=== PATIENT | male | born 1960 | race Two or more races ===

== ENCOUNTER 2017-02-21 13:37 | Inpatient (IN) | payer MEDICAID ==
[~2017-02-21] VITALS: Ht 167.6 cm; Wt 54.4 kg
[2017-02-21] VITALS (14 sets, daily range): BP systolic 86–124; BP diastolic 49–82
[2017-02-21] MEDS ORDERED: Trihexyphenidyl 2mg tab ORAL ONE (14:00)
[2017-02-21 14:55] LABS: BASOPHILS % (AUTO) 1.6 % (0.0-2.0); EOSINOPHILS % (AUTO) 2.5 % (0.0-3.0); LYMPHOCYTES % (AUTO) 20.9 % (20.0-45.0); MEAN CORPUSCULAR HEMOGLOBIN 33.3 PG (27.0-31.0); MEAN CORPUSCULAR HGB CONC 34.4 G/DL (32.0-36.0); MEAN CORPUSCULAR VOLUME 97 FL (80-99); MEAN PLATELET VOLUME 6.1 FL (6.5-10.1); PLATELET COUNT 242 K/UL (150-450); RED BLOOD COUNT 4.93 M/UL (4.70-6.10); RED CELL DISTRIBUTION WIDTH 11.7 % (11.6-14.8)
[2017-02-21 15:13] LABS: ANION GAP 7 mmol/L (5-15); CALCIUM 8.6 MG/DL (8.5-10.1); CARBON DIOXIDE 27 MMOL/L (21-32); CHLORIDE 103 MMOL/L (98-107); CREATININE 0.5 MG/DL (0.55-1.30); GLOMERULAR FILTRATION RATE > 60 mL/min (>60); POTASSIUM 3.9 MMOL/L (3.5-5.1); SODIUM 137 MMOL/L (136-145)
[2017-02-21 15:18] LABS: ALANINE AMINOTRANSFERASE 93 U/L (12-78); ALBUMIN/GLOBULIN RATIO 1.1 (1.0-2.7); ASPARTATE AMINO TRANSFERASE 43 U/L (15-37); TOTAL PROTEIN 7.2 G/DL (6.4-8.2)
--- NOTE | 2017-02-21 15:25 | Emergency Room Report ---
History of Present Illness General Chief Complaint: Seizure Source: Patient Present Illness HPI Patient is a 56-year-old male presented after syncopal episode. The patient reports having prior history of seizure disorder. Patient states he lost consciousness. This was unwitnessed. Patient is brought in by EMS. Patient reportedly takes Dilantin. Patient complained of right upper extremity shaking. He states he usually takes Artane for this. He denies any fever Allergies: Coded Allergies: No Known Allergies (Unverified , 02/21/17) Patient History Past Medical History: see triage record, psych hx Reviewed Nursing Documentation: PMH: Agreed, PSxH: Agreed Nursing Documentation-PMH Hx Seizures: Yes Review of Systems All Other Systems: limited - by mental status Physical Exam Vital Signs Date Time Temp Pulse Resp B/P (MAP) Pulse Ox O2 Delivery O2 Flow Rate FiO2 02/21/17 13:34 98.1 120 18 130/80 98 Room Air Sp02 EP Interpretation: reviewed, normal General Appearance: normal inspection, well appearing, no apparent distress, alert, GCS 15 Head: atraumatic ENT: normal ENT inspection, hearing grossly normal, normal voice Neck: normal inspection, full range of motion, supple, no bony tend Respiratory: normal inspection, lungs clear, normal breath sounds, no respiratory distress, no retraction, no wheezing Cardiovascular #1: regular rate, rhythm, no edema Gastrointestinal: normal inspection, normal bowel sounds, non tender, soft, no guarding, no hernia Genitourinary: no CVA tenderness Musculoskeletal: normal inspection, back normal, normal range of motion Neurologic: normal inspection, alert, oriented x3, responsive, rural sociologist III-XII nml as tested, speech normal, other - upper extremity tremor Psychiatric: normal inspection, judgement/insight normal, other - flat affect Skin: normal inspection, normal color, no rash Medical Decision Making Diagnostic Impression: Primary Impression: Epileptic seizure, generalized Additional Impression: Bradycardia ER Course Patient presented for syncope . Differential diagnosis included but not limited to syncope versus seizure. Potential causes for syncope included arrhythmia, dehydration, acute coronary syndrome, severe anemia, pulmonary embolus.Because of complexity of patient's case laboratory testing and imaging studies were ordered. Laboratory testing was notable for subtherapeutic dilantin level. Patient was loaded on Dilantin. He was noted to have bradycardia episodes. Patient was discussed with Dr. Stewart for inpatient management due to panel physician. Labs Test 02/21/17 14:35 02/22/17 06:40 Troponin I 0.000 ng/mL (0.000-0.056) Phenytoin (Dilantin) Level < 0.4 ug/mL (10-20) White Blood Count 6.0 K/UL (4.8-10.8) Red Blood Count 4.84 M/UL (4.70-6.10) Hemoglobin 17.2 G/DL (14.2-18.0) Hematocrit 45.9 % (42.0-52.0) Mean Corpuscular Volume 95 FL (80-99) Mean Corpuscular Hemoglobin 35.6 PG (27.0-31.0) Mean Corpuscular Hemoglobin Concent 37.6 G/DL (32.0-36.0) Red Cell Distribution Width 11.2 % (11.6-14.8) Platelet Count 221 K/UL (150-450) Mean Platelet Volume 6.0 FL (6.5-10.1) Neutrophils (%) (Auto) 53.3 % (45.0-75.0) Lymphocytes (%) (Auto) 30.7 % (20.0-45.0) Monocytes (%) (Auto) 10.0 % (1.0-10.0) Eosinophils (%) (Auto) 4.8 % (0.0-3.0) Basophils (%) (Auto) 1.3 % (0.0-2.0) Prothrombin Time 11.7 SEC (9.30-11.50) Prothromb Time International Ratio 1.1 (0.9-1.1) Activated Partial Thromboplast Time 27 SEC (23-33) Sodium Level 139 MMOL/L (136-145) Potassium Level 4.2 MMOL/L (3.5-5.1) Chloride Level 105 MMOL/L (98-107) Carbon Dioxide Level 26 MMOL/L (21-32) Anion Gap 8 mmol/L (5-15) Blood Urea Nitrogen 9 mg/dL (7-18) Creatinine 0.6 MG/DL (0.55-1.30) Estimat Glomerular Filtration Rate > 60 mL/min (>60) Glucose Level 95 MG/DL (74-106) Calcium Level 8.9 MG/DL (8.5-10.1) Total Bilirubin 0.8 MG/DL (0.2-1.0) Aspartate Amino Transf (AST/SGOT) 51 U/L (15-37) Alanine Aminotransferase (ALT/SGPT) 102 U/L (12-78) Alkaline Phosphatase 76 U/L (46-116) Total Protein 7.3 G/DL (6.4-8.2) Albumin 3.9 G/DL (3.4-5.0) Globulin 3.4 g/dL Albumin/Globulin Ratio 1.1 (1.0-2.7) Triglycerides Level 50 MG/DL (30-150) Cholesterol Level 162 MG/DL (< 200) LDL Cholesterol 111 mg/dL (<100) HDL Cholesterol 47 MG/DL (40-60) Cholesterol/HDL Ratio 3.4 (3.3-4.4) Thyroid Stimulating Hormone (TSH) 0.652 uiU/mL (0.358-3.740) EKG Diagnostic Results Rate: bradycardiac ST Segments: no acute changes Rhythm Strip Diag. Results EP Interpretation: yes Rhythm: no PVC's, no ectopy, other - sinus bradycardia Last Vital Signs Date Time Temp Pulse Resp B/P (MAP) Pulse Ox O2 Delivery O2 Flow Rate FiO2 02/21/17 15:09 98.1 40 16 113/70 100 Room Air Status: unchanged Disposition: ADMITTED INPATIENT Condition: Serious Scripts Unable to Obtain Active Prescriptions or Reported Meds Referrals: NOT CHOSEN IPA/,REFERRING (PCP) [place] Feb 21, 2017 15:25
[2017-02-21] MEDS ORDERED: Phenytoin 250mg/5ml vial ONE (15:28)
[2017-02-21] MEDS ORDERED: Phenytoin 1,000 MG in NS 275 ML IVPB ONE (15:30)
[2017-02-21] MEDS ORDERED: Mylanta II UD 30ml ORAL PRN (16:00)
[2017-02-21] MEDS ORDERED: Nitroglycerin Subl 0.4mg tab SL PRN (16:00)
[2017-02-21] MEDS ORDERED: Morphine Sulfate 2mg/ml Inj IVP PRN (16:00)
[2017-02-21] MEDS ORDERED: Miralax 17gm pkt ORAL PRN (16:00)
[2017-02-21] MEDS ORDERED: LORazepam Inj 2mg/ml 1ml IV PRN (16:00)
[2017-02-21] MEDS ORDERED: Albuterol/Ipratropium 3ml neb HHN PRN (16:00)
--- NOTE | 2017-02-21 16:00 | Diagnostic Imaging Report ---
Indications: Head trauma, status post fall Technique: Spiral acquisitions obtained through the brain. Angled axial and coronal 5 x 5 mm slices were reconstructed. Total dose length product 1404 mGycm. CTDI vol(s) 70 mGy. Dose reduction achieved using automated exposure control Comparison: None Findings: There is an area of encephalomalacia in the inferolateral right temporal lobe anteriorly. No acute intracranial hemorrhage or edema. No mass effect or midline shift. Normal size ventricles and extra axial CSF spaces. Normal garcia-white differentiation otherwise. Intact calvarium. Visualized orbits and sinuses are unremarkable. Old healed fracture deformity of the right zygomatic arch incidentally noted. 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
[2017-02-21] MEDS ORDERED: DiphenhydrAMINE 50mg/ml Inj IVP ONE (18:45)
[2017-02-21] MEDS: Heparin 5000 units/ml inj SUBQ SCH (21:00)
--- NOTE | 2017-02-21 21:35 | History and Physical ---
History of Present Illness General Date patient seen: Feb 21, 2017 Reason for Hospitalization: Seizure Present Illness HPI 56-year-old male with hx of seizures presented after syncopal episode. Patient states he lost consciousness. This was unwitnessed. Patient is brought in by EMS. Patient complained of right upper extremity shaking. He states he usually takes Artane for this. He is admitted for an syncopal episode or uncontrolled seizures. He was also noticed to be bradycardic. Allergies: Coded Allergies: No Known Allergies (Unverified , 02/21/17) Medication History Unable to Obtain Active Prescriptions or Reported Meds Patient History Healthcare decision maker Resuscitation status Advanced Directive on File Past Medical/Surgical History Past Medical/Surgical History: (1) Seizure disorder Review of Systems All Other Systems: negative except mentioned in HPI Physical Exam General Appearance: WD/WN Lines, tubes and drains: central line HEENT: normocephalic Neck: non-tender, normal alignment Respiratory/Chest: chest wall non-tender, lungs clear Breasts: no masses Cardiovascular/Chest: normal peripheral pulses, normal rate, regular rhythm Abdomen: normal bowel sounds Genitourinary/Rectal: normal genital exam Extremities: normal range of motion Last 24 Hour Vital Signs Date Time Temp Pulse Resp B/P (MAP) Pulse Ox O2 Delivery O2 Flow Rate FiO2 02/21/17 19:44 97.5 56 18 99/52 99 Room Air 02/21/17 19:07 97.5 72 18 108/69 99 Room Air 02/21/17 18:09 97.5 63 22 104/68 98 Room Air 02/21/17 17:23 98.1 59 15 108/65 99 Room Air 02/21/17 16:53 98.1 43 20 94/52 99 Room Air 02/21/17 16:08 98.0 47 16 115/62 100 Room Air 02/21/17 15:30 97.8 42 14 99/56 98 Room Air 02/21/17 15:09 98.1 40 16 113/70 100 Room Air 02/21/17 14:46 98.1 49 16 113/70 98 Room Air 124/82 02/21/17 14:30 98.0 47 16 111/74 100 Room Air 02/21/17 13:48 63 16 Room Air 02/21/17 13:48 98.1 63 16 123/81 98 Room Air 02/21/17 13:34 98.1 120 18 130/80 98 Room Air Intake and Output 02/21/17 02/22/17 19:00 07:00 Intake Total 250 ml Balance 250 ml Intake Oral 0 ml IV Total 250 ml Laboratory Tests Test 02/21/17 14:35 White Blood Count 6.0 K/UL (4.8-10.8) Red Blood Count 4.93 M/UL (4.70-6.10) Hemoglobin 16.4 G/DL (14.2-18.0) Hematocrit 47.8 % (42.0-52.0) Mean Corpuscular Volume 97 FL (80-99) Mean Corpuscular Hemoglobin 33.3 PG (27.0-31.0) H Mean Corpuscular Hemoglobin Concent 34.4 G/DL (32.0-36.0) Red Cell Distribution Width 11.7 % (11.6-14.8) Platelet Count 242 K/UL (150-450) Mean Platelet Volume 6.1 FL (6.5-10.1) L Neutrophils (%) (Auto) 65.0 % (45.0-75.0) Lymphocytes (%) (Auto) 20.9 % (20.0-45.0) Monocytes (%) (Auto) 10.0 % (1.0-10.0) Eosinophils (%) (Auto) 2.5 % (0.0-3.0) Basophils (%) (Auto) 1.6 % (0.0-2.0) Sodium Level 137 MMOL/L (136-145) Potassium Level 3.9 MMOL/L (3.5-5.1) Chloride Level 103 MMOL/L (98-107) Carbon Dioxide Level 27 MMOL/L (21-32) Anion Gap 7 mmol/L (5-15) Blood Urea Nitrogen 12 mg/dL (7-18) Creatinine 0.5 MG/DL (0.55-1.30) L Estimat Glomerular Filtration Rate > 60 mL/min (>60) Glucose Level 83 MG/DL (74-106) Calcium Level 8.6 MG/DL (8.5-10.1) Total Bilirubin 0.7 MG/DL (0.2-1.0) Aspartate Amino Transf (AST/SGOT) 43 U/L (15-37) H Alanine Aminotransferase (ALT/SGPT) 93 U/L (12-78) H Alkaline Phosphatase 78 U/L (46-116) Troponin I 0.000 ng/mL (0.000-0.056) Total Protein 7.2 G/DL (6.4-8.2) Albumin 3.8 G/DL (3.4-5.0) Globulin 3.4 g/dL Albumin/Globulin Ratio 1.1 (1.0-2.7) Phenytoin (Dilantin) Level < 0.4 ug/mL (10-20) L Height (Feet): 5 Height (Inches): 6.00 Weight (Pounds): 120 Medications Current Medications Medications (Trade) Dose Ordered Sig/Lucas Route PRN Reason Start Time Stop Time Status Last Admin Dose Admin Acetaminophen (Tylenol) 650 mg Q4H PRN ORAL fever 02/21/17 16:00 03/23/17 15:59 Al Hydroxide/Mg Hydroxide (Mylanta II) 30 ml Q6H PRN ORAL dyspepsia 02/21/17 16:00 03/23/17 15:59 Albuterol/ Ipratropium (Albuterol/ Ipratropium) 3 ml Q4H PRN HHN Shortness of Breath 02/21/17 16:00 02/26/17 15:59 Clonidine HCl (Catapres) 0.1 mg Q4H PRN ORAL SBP > 160 02/21/17 16:00 03/23/17 15:59 Dextrose (Dextrose 50%) STAT PRN IV Hypoglycemia 02/21/17 16:00 03/23/17 15:59 Heparin Sodium (Porcine) (Heparin 5000 units/ml) 5,000 units EVERY 12 HOURS SUBQ 02/21/17 21:00 03/23/17 20:59 Lorazepam (Ativan 2mg/ml 1ml) 0.5 mg Q4H PRN IV For Anxiety 02/21/17 16:00 02/28/17 15:59 Morphine Sulfate (Morphine Sulfate) 1 mg Q4H PRN IVP For Pain 7-10 02/21/17 16:00 02/28/17 15:59 Nitroglycerin (Ntg) 0.4 mg Q5M X 3 DOSES PRN SL Prn Chest Pain 02/21/17 16:00 03/23/17 15:59 Ondansetron HCl (Zofran) 4 mg Q6H PRN IVP Nausea & Vomiting 02/21/17 16:00 03/23/17 15:59 Polyethylene Glycol (Miralax) 17 gm HSPRN PRN ORAL Constipation 02/21/17 16:00 03/23/17 15:59 Temazepam (Restoril) 15 mg HSPRN PRN ORAL Insomnia 02/21/17 16:00 02/28/17 15:59 Assessment/Plan Problem List: (1) Acute encephalopathy ICD Codes: G93.40 - Encephalopathy, unspecified SNOMED: 5113261 (2) Epileptic seizure, generalized ICD Codes: G40.309 - Generalized idiopathic epilepsy and epileptic syndromes, not intractable, without status epilepticus SNOMED: 70381189 (3) Seizure disorder ICD Codes: G40.909 - Epilepsy, unspecified, not intractable, without status epilepticus SNOMED: 840146218 (4) Bradycardia ICD Codes: R00.1 - Bradycardia, unspecified SNOMED: 57694645 Assessment/Plan telemetry monitoring cardiology and neuro evaluation dvt prophylaxis. SERGEY DESHPANDE Feb 21, 2017 21:35
[2017-02-22 04:00] VITALS: BP 96/61
[2017-02-22 07:47] LABS: BASOPHILS % (AUTO) 1.3 % (0.0-2.0); EOSINOPHILS % (AUTO) 4.8 % (0.0-3.0); LYMPHOCYTES % (AUTO) 30.7 % (20.0-45.0); MEAN CORPUSCULAR HEMOGLOBIN 35.6 PG (27.0-31.0); MEAN CORPUSCULAR HGB CONC 37.6 G/DL (32.0-36.0); MEAN CORPUSCULAR VOLUME 95 FL (80-99); NEUTROPHILS % (AUTO) 53.3 % (45.0-75.0); PLATELET COUNT 221 K/UL (150-450); RED BLOOD COUNT 4.84 M/UL (4.70-6.10); RED CELL DISTRIBUTION WIDTH 11.2 % (11.6-14.8)
[2017-02-22 08:00] VITALS: BP 101/64
[2017-02-22 08:10] LABS: INR 1.1 (0.9-1.1); PROTHROMBIN TIME 11.7 SEC (9.30-11.50)
[2017-02-22 08:11] LABS: ALANINE AMINOTRANSFERASE 102 U/L (12-78); ALBUMIN/GLOBULIN RATIO 1.1 (1.0-2.7); ANION GAP 8 mmol/L (5-15); ASPARTATE AMINO TRANSFERASE 51 U/L (15-37); CALCIUM 8.9 MG/DL (8.5-10.1); CARBON DIOXIDE 26 MMOL/L (21-32); CHLORIDE 105 MMOL/L (98-107); CHOLESTEROL 162 MG/DL (< 200); CHOLESTEROL/HDL RATIO 3.4 (3.3-4.4); CREATININE 0.6 MG/DL (0.55-1.30); GLOMERULAR FILTRATION RATE > 60 mL/min (>60); POTASSIUM 4.2 MMOL/L (3.5-5.1); SODIUM 139 MMOL/L (136-145); THYROID STIMULATING HORMONE 0.652 uiU/mL (0.358-3.740); TOTAL PROTEIN 7.3 G/DL (6.4-8.2)
[2017-02-22] MEDS: Heparin 5000 units/ml inj SUBQ SCH ×2 (09:44→20:17)
[2017-02-22] MEDS ORDERED: Trihexyphenidyl 2mg tab ORAL ONE (10:00)
[2017-02-22 12:00] VITALS: BP 107/67
--- NOTE | 2017-02-22 13:39 | Pulmonology Progress Note ---
Assessment/Plan Problems: (1) Acute encephalopathy (2) Epileptic seizure, generalized (3) Seizure disorder (4) Bradycardia Assessment/Plan no new complains awaiting cardio and neuro evaluation symptomatic treatment Subjective ROS Limited/Unobtainable: No Interval Events: no new complains Constitutional: Reports: no symptoms HEENT: Repors: no symptoms Allergies: Coded Allergies: No Known Allergies (Unverified , 02/21/17) Objective Last 24 Hour Vital Signs Date Time Temp Pulse Resp B/P (MAP) Pulse Ox O2 Delivery O2 Flow Rate FiO2 02/22/17 08:00 48 02/22/17 04:00 46 02/22/17 04:00 96.4 46 20 96/61 95 Room Air 02/22/17 00:00 45 02/21/17 23:40 98.4 44 18 112/67 97 Room Air 02/21/17 23:26 97.5 49 18 92/59 99 Room Air 46 02/21/17 23:21 97.5 46 18 92/59 99 Room Air 02/21/17 21:35 97.5 49 18 86/49 99 Room Air 02/21/17 19:44 97.5 56 18 99/52 99 Room Air 02/21/17 19:07 97.5 72 18 108/69 99 Room Air 02/21/17 18:09 97.5 63 22 104/68 98 Room Air 02/21/17 17:23 98.1 59 15 108/65 99 Room Air 02/21/17 16:53 98.1 43 20 94/52 99 Room Air 02/21/17 16:08 98.0 47 16 115/62 100 Room Air 02/21/17 15:30 97.8 42 14 99/56 98 Room Air 02/21/17 15:09 98.1 40 16 113/70 100 Room Air 02/21/17 14:46 98.1 49 16 113/70 98 Room Air 124/82 02/21/17 14:30 98.0 47 16 111/74 100 Room Air 02/21/17 13:48 63 16 Room Air 02/21/17 13:48 98.1 63 16 123/81 98 Room Air General Appearance: WD/WN HEENT: atraumatic Respiratory/Chest: chest wall non-tender, lungs clear Cardiovascular: normal peripheral pulses, normal rate Abdomen: normal bowel sounds, soft, non tender Extremities: no clubbing Skin: no lesions Laboratory Tests 02/21/17 14:35: White Blood Count 6.0, Red Blood Count 4.93, Hemoglobin 16.4, Hematocrit 47.8, Mean Corpuscular Volume 97, Mean Corpuscular Hemoglobin 33.3H, Mean Corpuscular Hemoglobin Concent 34.4, Red Cell Distribution Width 11.7, Platelet Count 242, Mean Platelet Volume 6.1L, Neutrophils (%) (Auto) 65.0, Lymphocytes (%) (Auto) 20.9, Monocytes (%) (Auto) 10.0, Eosinophils (%) (Auto) 2.5, Basophils (%) (Auto ) 1.6, Sodium Level 137, Potassium Level 3.9, Chloride Level 103, Carbon Dioxide Level 27, Anion Gap 7, Blood Urea Nitrogen 12, Creatinine 0.5L, Estimat Glomerular Filtration Rate > 60, Glucose Level 83, Calcium Level 8.6, Total Bilirubin 0.7, Aspartate Amino Transf (AST/SGOT) 43H, Alanine Aminotransferase ( ALT/SGPT) 93H, Alkaline Phosphatase 78, Troponin I 0.000, Total Protein 7.2, Albumin 3.8, Globulin 3.4, Albumin/Globulin Ratio 1.1, Phenytoin (Dilantin) Level < 0.4L 02/22/17 06:40: White Blood Count 6.0, Red Blood Count 4.84, Hemoglobin 17.2, Hematocrit 45.9, Mean Corpuscular Volume 95, Mean Corpuscular Hemoglobin 35.6H, Mean Corpuscular Hemoglobin Concent 37.6H, Red Cell Distribution Width 11.2L, Platelet Count 221 , Mean Platelet Volume 6.0L, Neutrophils (%) (Auto) 53.3, Lymphocytes (%) (Auto ) 30.7, Monocytes (%) (Auto) 10.0, Eosinophils (%) (Auto) 4.8H, Basophils (%) ( Auto) 1.3, Sodium Level 139, Potassium Level 4.2, Chloride Level 105, Carbon Dioxide Level 26, Anion Gap 8, Blood Urea Nitrogen 9, Creatinine 0.6, Estimat Glomerular Filtration Rate > 60, Glucose Level 95, Calcium Level 8.9, Total Bilirubin 0.8, Aspartate Amino Transf (AST/SGOT) 51H, Alanine Aminotransferase ( ALT/SGPT) 102H, Alkaline Phosphatase 76, Total Protein 7.3, Albumin 3.9, Globulin 3.4, Albumin/Globulin Ratio 1.1, Prothrombin Time 11.7H, Prothromb Time International Ratio 1.1, Activated Partial Thromboplast Time 27, Triglycerides Level 50, Cholesterol Level 162, LDL Cholesterol 111H, HDL Cholesterol 47, Cholesterol/HDL Ratio 3.4, Thyroid Stimulating Hormone (TSH) 0.652 Current Medications Medications (Trade) Dose Ordered Sig/Lucas Route PRN Reason Start Time Stop Time Status Last Admin Dose Admin Acetaminophen (Tylenol) 650 mg Q4H PRN ORAL fever 02/21/17 16:00 03/23/17 15:59 Al Hydroxide/Mg Hydroxide (Mylanta II) 30 ml Q6H PRN ORAL dyspepsia 02/21/17 16:00 03/23/17 15:59 Albuterol/ Ipratropium (Albuterol/ Ipratropium) 3 ml Q4H PRN HHN Shortness of Breath 02/21/17 16:00 02/26/17 15:59 Clonidine HCl (Catapres) 0.1 mg Q4H PRN ORAL SBP > 160 02/21/17 16:00 03/23/17 15:59 Dextrose (Dextrose 50%) STAT PRN IV Hypoglycemia 02/21/17 16:00 03/23/17 15:59 Heparin Sodium (Porcine) (Heparin 5000 units/ml) 5,000 units EVERY 12 HOURS SUBQ 02/21/17 21:00 03/23/17 20:59 02/22/17 09:44 Lorazepam (Ativan 2mg/ml 1ml) 0.5 mg Q4H PRN IV For Anxiety 02/21/17 16:00 02/28/17 15:59 Morphine Sulfate (Morphine Sulfate) 1 mg Q4H PRN IVP For Pain 7-10 02/21/17 16:00 02/28/17 15:59 Nitroglycerin (Ntg) 0.4 mg Q5M X 3 DOSES PRN SL Prn Chest Pain 02/21/17 16:00 03/23/17 15:59 Ondansetron HCl (Zofran) 4 mg Q6H PRN IVP Nausea & Vomiting 02/21/17 16:00 03/23/17 15:59 Polyethylene Glycol (Miralax) 17 gm HSPRN PRN ORAL Constipation 02/21/17 16:00 03/23/17 15:59 Temazepam (Restoril) 15 mg HSPRN PRN ORAL Insomnia 02/21/17 16:00 02/28/17 15:59 SERGEY DESHPANDE Feb 22, 2017 13:39
--- NOTE | 2017-02-22 14:32 | Cardiology Progress Note ---
Assessment/Plan Assessment/Plan suspected syncope orthostatic sc hyptesnion bradycardia seizure do with subthereperutic dilatin level hep c infection hx homeless orthattic vital ivf ? need resumption of dilating to rpevent seizures in futuer ? [id number] Objective Last 24 Hour Vital Signs Date Time Temp Pulse Resp B/P (MAP) Pulse Ox O2 Delivery O2 Flow Rate FiO2 02/22/17 08:00 48 02/22/17 04:00 46 02/22/17 04:00 96.4 46 20 96/61 95 Room Air 02/22/17 00:00 45 02/21/17 23:40 98.4 44 18 112/67 97 Room Air 02/21/17 23:26 97.5 49 18 92/59 99 Room Air 46 02/21/17 23:21 97.5 46 18 92/59 99 Room Air 02/21/17 21:35 97.5 49 18 86/49 99 Room Air 02/21/17 19:44 97.5 56 18 99/52 99 Room Air 02/21/17 19:07 97.5 72 18 108/69 99 Room Air 02/21/17 18:09 97.5 63 22 104/68 98 Room Air 02/21/17 17:23 98.1 59 15 108/65 99 Room Air 02/21/17 16:53 98.1 43 20 94/52 99 Room Air 02/21/17 16:08 98.0 47 16 115/62 100 Room Air 02/21/17 15:30 97.8 42 14 99/56 98 Room Air 02/21/17 15:09 98.1 40 16 113/70 100 Room Air 02/21/17 14:46 98.1 49 16 113/70 98 Room Air 124/82 Laboratory Tests Test 02/21/17 14:35 02/22/17 06:40 White Blood Count 6.0 K/UL (4.8-10.8) 6.0 K/UL (4.8-10.8) Red Blood Count 4.93 M/UL (4.70-6.10) 4.84 M/UL (4.70-6.10) Hemoglobin 16.4 G/DL (14.2-18.0) 17.2 G/DL (14.2-18.0) Hematocrit 47.8 % (42.0-52.0) 45.9 % (42.0-52.0) Mean Corpuscular Volume 97 FL (80-99) 95 FL (80-99) Mean Corpuscular Hemoglobin 33.3 PG (27.0-31.0) H 35.6 PG (27.0-31.0) H Mean Corpuscular Hemoglobin Concent 34.4 G/DL (32.0-36.0) 37.6 G/DL (32.0-36.0) H Red Cell Distribution Width 11.7 % (11.6-14.8) 11.2 % (11.6-14.8) L Platelet Count 242 K/UL (150-450) 221 K/UL (150-450) Mean Platelet Volume 6.1 FL (6.5-10.1) L 6.0 FL (6.5-10.1) L Neutrophils (%) (Auto) 65.0 % (45.0-75.0) 53.3 % (45.0-75.0) Lymphocytes (%) (Auto) 20.9 % (20.0-45.0) 30.7 % (20.0-45.0) Monocytes (%) (Auto) 10.0 % (1.0-10.0) 10.0 % (1.0-10.0) Eosinophils (%) (Auto) 2.5 % (0.0-3.0) 4.8 % (0.0-3.0) H Basophils (%) (Auto) 1.6 % (0.0-2.0) 1.3 % (0.0-2.0) Sodium Level 137 MMOL/L (136-145) 139 MMOL/L (136-145) Potassium Level 3.9 MMOL/L (3.5-5.1) 4.2 MMOL/L (3.5-5.1) Chloride Level 103 MMOL/L (98-107) 105 MMOL/L (98-107) Carbon Dioxide Level 27 MMOL/L (21-32) 26 MMOL/L (21-32) Anion Gap 7 mmol/L (5-15) 8 mmol/L (5-15) Blood Urea Nitrogen 12 mg/dL (7-18) 9 mg/dL (7-18) Creatinine 0.5 MG/DL (0.55-1.30) L 0.6 MG/DL (0.55-1.30) Estimat Glomerular Filtration Rate > 60 mL/min (>60) > 60 mL/min (>60) Glucose Level 83 MG/DL (74-106) 95 MG/DL (74-106) Calcium Level 8.6 MG/DL (8.5-10.1) 8.9 MG/DL (8.5-10.1) Total Bilirubin 0.7 MG/DL (0.2-1.0) 0.8 MG/DL (0.2-1.0) Aspartate Amino Transf (AST/SGOT) 43 U/L (15-37) H 51 U/L (15-37) H Alanine Aminotransferase (ALT/SGPT) 93 U/L (12-78) H 102 U/L (12-78) H Alkaline Phosphatase 78 U/L (46-116) 76 U/L (46-116) Troponin I 0.000 ng/mL (0.000-0.056) Total Protein 7.2 G/DL (6.4-8.2) 7.3 G/DL (6.4-8.2) Albumin 3.8 G/DL (3.4-5.0) 3.9 G/DL (3.4-5.0) Globulin 3.4 g/dL 3.4 g/dL Albumin/Globulin Ratio 1.1 (1.0-2.7) 1.1 (1.0-2.7) Phenytoin (Dilantin) Level < 0.4 ug/mL (10-20) L Prothrombin Time 11.7 SEC (9.30-11.50) H Prothromb Time International Ratio 1.1 (0.9-1.1) Activated Partial Thromboplast Time 27 SEC (23-33) Triglycerides Level 50 MG/DL (30-150) Cholesterol Level 162 MG/DL (< 200) LDL Cholesterol 111 mg/dL (<100) H HDL Cholesterol 47 MG/DL (40-60) Cholesterol/HDL Ratio 3.4 (3.3-4.4) Thyroid Stimulating Hormone (TSH) 0.652 uiU/mL (0.358-3.740) CATRINA MAYA Feb 22, 2017 14:32
[2017-02-22 16:00] VITALS: BP 123/62
--- NOTE | 2017-02-22 18:08 | Neurology Progress Note ---
Interim History Interim History ROS Limited/Unobtainable: No Objective Physical Exam Last Vital Signs Date Time Temp Pulse Resp B/P (MAP) Pulse Ox O2 Delivery O2 Flow Rate FiO2 02/22/17 16:00 51 02/22/17 04:00 96.4 20 96/61 95 Room Air Laboratory Tests Test 02/22/17 06:40 02/22/17 15:45 White Blood Count 6.0 K/UL (4.8-10.8) Red Blood Count 4.84 M/UL (4.70-6.10) Hemoglobin 17.2 G/DL (14.2-18.0) Hematocrit 45.9 % (42.0-52.0) Mean Corpuscular Volume 95 FL (80-99) Mean Corpuscular Hemoglobin 35.6 PG (27.0-31.0) H Mean Corpuscular Hemoglobin Concent 37.6 G/DL (32.0-36.0) H Red Cell Distribution Width 11.2 % (11.6-14.8) L Platelet Count 221 K/UL (150-450) Mean Platelet Volume 6.0 FL (6.5-10.1) L Neutrophils (%) (Auto) 53.3 % (45.0-75.0) Lymphocytes (%) (Auto) 30.7 % (20.0-45.0) Monocytes (%) (Auto) 10.0 % (1.0-10.0) Eosinophils (%) (Auto) 4.8 % (0.0-3.0) H Basophils (%) (Auto) 1.3 % (0.0-2.0) Prothrombin Time 11.7 SEC (9.30-11.50) H Prothromb Time International Ratio 1.1 (0.9-1.1) Activated Partial Thromboplast Time 27 SEC (23-33) Sodium Level 139 MMOL/L (136-145) Potassium Level 4.2 MMOL/L (3.5-5.1) Chloride Level 105 MMOL/L (98-107) Carbon Dioxide Level 26 MMOL/L (21-32) Anion Gap 8 mmol/L (5-15) Blood Urea Nitrogen 9 mg/dL (7-18) Creatinine 0.6 MG/DL (0.55-1.30) Estimat Glomerular Filtration Rate > 60 mL/min (>60) Glucose Level 95 MG/DL (74-106) Calcium Level 8.9 MG/DL (8.5-10.1) Total Bilirubin 0.8 MG/DL (0.2-1.0) Aspartate Amino Transf (AST/SGOT) 51 U/L (15-37) H Alanine Aminotransferase (ALT/SGPT) 102 U/L (12-78) H Alkaline Phosphatase 76 U/L (46-116) Total Protein 7.3 G/DL (6.4-8.2) Albumin 3.9 G/DL (3.4-5.0) Globulin 3.4 g/dL Albumin/Globulin Ratio 1.1 (1.0-2.7) Triglycerides Level 50 MG/DL (30-150) Cholesterol Level 162 MG/DL (< 200) LDL Cholesterol 111 mg/dL (<100) H HDL Cholesterol 47 MG/DL (40-60) Cholesterol/HDL Ratio 3.4 (3.3-4.4) Thyroid Stimulating Hormone (TSH) 0.652 uiU/mL (0.358-3.740) Troponin I 0.000 ng/mL (0.000-0.056) Impression/Recommendations Recommendations # [id number] KAT ARCE Feb 22, 2017 18:08
[2017-02-22] MEDS ORDERED: Phenytoin 1,000 MG in NS 275 ML IVPB ONE (19:00)
[2017-02-22 20:00] VITALS: BP 98/55
--- NOTE | 2017-02-22 21:01 | Consultation ---
DATE OF CONSULTATION: 02/22/2017 CARDIOLOGY CONSULTATION CONSULTING PHYSICIAN: Kevin Lawler M.D. REFERRING PHYSICIAN: Tra Stewart M.D. REASON FOR REFERRAL: Syncope. HISTORY OF PRESENT ILLNESS: This is a 56-year-old homeless gentleman who apparently sleeps on the streets, has not been eating or drinking much in the past few days. Was smoking a cigarette, got up, stood up, and passed out. Paramedics were summoned. They found the patient with blood pressure of 132/86 with heart rate of 63. Eventually, the patient was brought to the emergency room at [facility] and has been admitted to the hospital. He does not have any chest pain. No PND. No orthopnea. No palpitation. He does admit to being dizzy and lightheaded when he first sits up or stands up recently. PAST MEDICAL HISTORY: Positive for history of seizures. Denies all other medical problems on questioning. The patient has history of hepatitis C. ALLERGIES: No allergies to medications. SOCIAL HISTORY: He smokes about 15 cigarettes per day. Does not drink alcoholic beverages, never did. He used to use marijuana, but not on a regular basis. REVIEW OF SYSTEMS: GASTROINTESTINAL: Negative. GENITOURINARY: Negative. PULMONARY: Negative. CONSTITUTIONAL: Negative. NEUROLOGIC: negative. PHYSICAL EXAMINATION: GENERAL: Shows him to be an elderly gentleman, in no respiratory distress, laying down flat. SKIN: He has got rash throughout the upper parts of the torso in different areas. NECK: Supple. No jugular venous distention. LUNGS: Clear to auscultation and percussion. CARDIAC: S1 is normal. S2 is normal. Regular rate and rhythm. No heaves, thrills, gallops, or rubs. ABDOMEN: Soft and nontender. Positive bowel sounds. EXTREMITIES: There is no clubbing, cyanosis, or edema. NEUROLOGIC: He is awake, alert, responsive, and in no apparent distress. LABORATORY AND DIAGNOSTIC DATA: White count of 6, hemoglobin 17.2, and platelet count 221. Sodium is 139, potassium 4.2, chloride 105, bicarbonate 26, BUN of 9, creatinine 0.8, and glucose of 95. Liver function tests, minimal AST of 51 and ALT of 102. First set of cardiac enzymes was negative and his cholesterol was 162 with a LDL of 111 and HDL of 47. TSH is 0.652. Coagulations, INR 1.1 and PTT of 27. Dilantin level was less than 0.4. CT of the head reportedly negative for acute intracranial bleeds. Carotid duplex shows no evidence of plaque within the internal or external carotid arteries. Preliminary echocardiogram shows normal left ventricular systolic function. His EKG shows sinus bradycardia at the time of his initial presentation, heart rate of 41. No ST or T wave abnormalities of any significant degree. Telemetry data, however, shows sinus rhythm at this time with heart rates in the 60s. Last time, it was 48 earlier this morning. ASSESSMENT: 1. Syncope versus seizure. 2. Orthostatic symptoms. 3. History of seizure disorder. 4. History of hepatitis C infection, probable infestation with bones. Dr. Stewart, this patient was seen in cardiac consultation. The patient endorses some symptoms suggestive of orthostatic vitals. His Dilantin level was zero. His blood pressure has been on the low side, as low as 86/49. I suspect more so that he had a syncope than he had a seizure, as he did seem to be disoriented according to feltmaker and weigher run sheet. He did have some bouts of sinus bradycardia, as of yet unknown etiology. The patient does not have hypothyroidism. He is saturating well. I would recommend starting him on intravenous fluid boluses and IV fluid administration and repeating orthostatic vitals before and after and I will review the echocardiogram and a set of cardiac enzymes repeat will be ordered. The question is whether he needs to be started back on his Dilantin if it is subtherapeutic for prevention of seizures in the future. Kevin Lawler M.D. DR: NICOLE JOB#: [id number] CC:
[2017-02-23] VITALS: BP 120/72
[2017-02-23 04:00] VITALS: BP 107/57
--- NOTE | 2017-02-23 05:45 | Consultation ---
DATE OF CONSULTATION: 02/22/2017 NEUROLOGICAL CONSULTATION REQUESTING PHYSICIAN: Tra Stewart M.D. HISTORY OF PRESENT ILLNESS: This is a 56-year-old male seen in neurological consultation to evaluate exacerbation of seizures. The patient informed me that he is suffering from chronic seizure disorder for at least 10 years. He was brought here after having episode of "seizure." He defined this as an episode where he developed aura, visual sensation of some blinking following which he lost consciousness. He is repeating at least once a month his seizure activities. He was brought to emergency room. His vital signs included sinus tachycardia of 120. He was afebrile, blood pressure 120/80, and heart rate was trending down to 40. We did a CAT scan of the brain. This revealed encephalomalacia in right temporal lobe. There was old healed fracture deformity of right zygomatic arch. His carotid duplex was unremarkable. Laboratory work was obtained. This revealed normal CBC study. Slightly elevated MCV and MCH. Coagulopathy with PT of 11.7 and INR 1.1. Toxicology panel, phenytoin level less than 0.4. Chemistry panel with elevated AST 46 and ALT 93. Normal liver functions, TSH, and troponin. Following admission until present, there was no further paroxysmal activity. The patient informs me that he has bipolar disorder with multiple suicidal attempts with cutting his arms, has a history of head trauma following which he developed seizure disorder. The patient developed tremors of right upper extremity and reportedly was using Artane. Otherwise he has no recollection of medications. that he is not taking his anticonvulsants. SOCIAL HISTORY: The patient appears to be homeless, but he states that he sleeps in a board and care facility. He denies alcohol or drug abuse. FAMILY HISTORY: Unavailable. REVIEW OF SYMPTOMS: Generalized weakness, rash because of "bed bugs." Right arm tremor, seizures preceded by aura. No chest pain. No palpitations. No respiratory problems. PHYSICAL EXAMINATION: GENERAL: Somewhat disheveled man, not in acute distress, lying comfortably in bed. He is edentulous. He has disseminated rash, scratches, some resembled scabies. MUSCULOSKELETAL: Peripheral pulses 1+ symmetric. MENTAL STATUS: He is alert and oriented x3 with no evidence of aphasia or apraxia. Responses are slow, delayed. Mood appears depressed. CRANIAL NERVES II: Pupils responding to light and accommodation. Extraocular movements intact. No nystagmus. CRANIAL NERVES V: Normal corneal responses. CRANIAL NERVES VII: No facial asymmetry. CRANIAL NERVES VIII: Normal hearing. CRANIAL NERVES IX THROUGH XII: Within normal limits. MOTOR EXAMINATION: There is a resting tremor, right upper extremity. There is some bradykinesia. Deep tendon reflexes 1+ symmetric. Plantar responses flexor. SENSORY EXAMINATION: Normal to pinprick and light touch. GAIT: Gait is slow, but stable. IMPRESSION: 1. Chronic seizure disorder exacerbation due to noncompliance. 2. Bipolar disorder status post suicidal attempts. 3. Elevated transaminase. 4. History of head trauma with cerebral contusion, now with temporal lobe encephalomalacia. 5. Skin rash, rule out scabies. RECOMMENDATION: 1. Restart Dilantin 1 gram loading dose followed by 200 mg b.i.d. Recheck levels to adjust the dose. 2. Continue with the Artane 2 mg b.i.d. 3. Psychiatric evaluation. 4. Benadryl p.r.n. for itchiness. Conor Smallwood M.D. DR: Tomer JOB#: [id number] CC:
[2017-02-23 08:00] VITALS: BP 125/70
[2017-02-23] MEDS: Heparin 5000 units/ml inj SUBQ SCH (08:14)
[2017-02-23 08:37] LABS: BASOPHILS % (AUTO) 1.9 % (0.0-2.0); EOSINOPHILS % (AUTO) 4.2 % (0.0-3.0); LYMPHOCYTES % (AUTO) 31.3 % (20.0-45.0); MEAN CORPUSCULAR HEMOGLOBIN 32.7 PG (27.0-31.0); MEAN CORPUSCULAR HGB CONC 34.2 G/DL (32.0-36.0); MEAN CORPUSCULAR VOLUME 96 FL (80-99); MEAN PLATELET VOLUME 5.6 FL (6.5-10.1); MONOCYTES % (AUTO) 8.9 % (1.0-10.0); NEUTROPHILS % (AUTO) 53.7 % (45.0-75.0); PLATELET COUNT 210 K/UL (150-450); RED CELL DISTRIBUTION WIDTH 11.5 % (11.6-14.8); WHITE BLOOD COUNT 5.3 K/UL (4.8-10.8)
[2017-02-23 09:01] LABS: ALANINE AMINOTRANSFERASE 96 U/L (12-78); ALBUMIN/GLOBULIN RATIO 1.2 (1.0-2.7); ANION GAP 8 mmol/L (5-15); ASPARTATE AMINO TRANSFERASE 45 U/L (15-37); CALCIUM 8.7 MG/DL (8.5-10.1); CARBON DIOXIDE 28 MMOL/L (21-32); CHLORIDE 104 MMOL/L (98-107); CREATININE 0.9 MG/DL (0.55-1.30); GLOMERULAR FILTRATION RATE > 60 mL/min (>60); MAGNESIUM 1.7 MG/DL (1.8-2.4); PHOSPHORUS 2.9 MG/DL (2.5-4.9); POTASSIUM 3.6 MMOL/L (3.5-5.1); SODIUM 140 MMOL/L (136-145); TOTAL PROTEIN 7.3 G/DL (6.4-8.2)
[2017-02-23 12:00] VITALS: BP 130/74
[2017-02-23] MEDS ORDERED: DILANTIN100 MG ORAL (12:39)
--- NOTE | 2017-02-23 12:42 | Pulmonology Progress Note ---
Assessment/Plan Problems: (1) Acute encephalopathy (2) Epileptic seizure, generalized (3) Seizure disorder (4) Bradycardia Assessment/Plan no new complains cardio and neuro evaluation appreciated on Dilantin 300 qd symptomatic treatment dc to previous housing arrangement Subjective ROS Limited/Unobtainable: No Constitutional: Reports: no symptoms HEENT: Repors: no symptoms Respiratory: Reports: no symptoms Allergies: Coded Allergies: No Known Allergies (Unverified , 02/21/17) Objective Last 24 Hour Vital Signs Date Time Temp Pulse Resp B/P (MAP) Pulse Ox O2 Delivery O2 Flow Rate FiO2 02/23/17 09:00 55 90 100 02/23/17 08:00 96.4 98 19 125/70 Room Air 02/23/17 08:00 60 02/23/17 04:00 58 02/23/17 04:00 97.0 50 20 107/57 97 Room Air 02/23/17 00:00 57 02/23/17 00:00 97.0 65 20 120/72 96 Room Air 02/22/17 20:00 51 66 75 02/22/17 20:00 73 02/22/17 20:00 98.1 51 18 98/55 95 Room Air 02/22/17 16:00 51 02/22/17 16:00 97.5 60 18 123/62 96 Room Air Intake and Output 02/23/17 02/24/17 19:00 07:00 Intake Total 500 ml Balance 500 ml IV Total 500 ml General Appearance: WD/WN HEENT: normocephalic, anicteric Respiratory/Chest: chest wall non-tender, lungs clear Cardiovascular: normal peripheral pulses, normal rate Abdomen: normal bowel sounds, soft, non tender Genitourinary: normal external genitalia Extremities: no clubbing Skin: no rash Laboratory Tests 02/22/17 15:45: Troponin I 0.000 02/23/17 08:15: White Blood Count 5.3, Red Blood Count 5.20, Hemoglobin 17.0, Hematocrit 49.7, Mean Corpuscular Volume 96, Mean Corpuscular Hemoglobin 32.7H, Mean Corpuscular Hemoglobin Concent 34.2, Red Cell Distribution Width 11.5L, Platelet Count 210, Mean Platelet Volume 5.6L, Neutrophils (%) (Auto) 53.7, Lymphocytes (%) (Auto) 31.3, Monocytes (%) (Auto) 8.9, Eosinophils (%) (Auto) 4.2H, Basophils (%) (Auto ) 1.9, Sodium Level 140, Potassium Level 3.6, Chloride Level 104, Carbon Dioxide Level 28, Anion Gap 8, Blood Urea Nitrogen 13, Creatinine 0.9, Estimat Glomerular Filtration Rate > 60, Glucose Level 191H, Calcium Level 8.7, Phosphorus Level 2.9, Magnesium Level 1.7L, Total Bilirubin 0.7, Aspartate Amino Transf (AST/SGOT) 45H, Alanine Aminotransferase (ALT/SGPT) 96H, Alkaline Phosphatase 81, Total Protein 7.3, Albumin 4.0, Globulin 3.3, Albumin/Globulin Ratio 1.2 Current Medications Medications (Trade) Dose Ordered Sig/Lucas Route PRN Reason Start Time Stop Time Status Last Admin Dose Admin Acetaminophen (Tylenol) 650 mg Q4H PRN ORAL fever 02/21/17 16:00 03/23/17 15:59 Al Hydroxide/Mg Hydroxide (Mylanta II) 30 ml Q6H PRN ORAL dyspepsia 02/21/17 16:00 03/23/17 15:59 Albuterol/ Ipratropium (Albuterol/ Ipratropium) 3 ml Q4H PRN HHN Shortness of Breath 02/21/17 16:00 02/26/17 15:59 Clonidine HCl (Catapres) 0.1 mg Q4H PRN ORAL SBP > 160 02/21/17 16:00 03/23/17 15:59 Dextrose (Dextrose 50%) STAT PRN IV Hypoglycemia 02/21/17 16:00 03/23/17 15:59 Heparin Sodium (Porcine) (Heparin 5000 units/ml) 5,000 units EVERY 12 HOURS SUBQ 02/21/17 21:00 03/23/17 20:59 02/23/17 08:14 Lorazepam (Ativan 2mg/ml 1ml) 0.5 mg Q4H PRN IV For Anxiety 02/21/17 16:00 02/28/17 15:59 Morphine Sulfate (Morphine Sulfate) 1 mg Q4H PRN IVP For Pain 7-10 02/21/17 16:00 02/28/17 15:59 Nitroglycerin (Ntg) 0.4 mg Q5M X 3 DOSES PRN SL Prn Chest Pain 02/21/17 16:00 03/23/17 15:59 Ondansetron HCl (Zofran) 4 mg Q6H PRN IVP Nausea & Vomiting 02/21/17 16:00 03/23/17 15:59 Phenytoin (Dilantin) 300 mg BEDTIME ORAL 02/23/17 21:00 03/25/17 20:59 Polyethylene Glycol (Miralax) 17 gm HSPRN PRN ORAL Constipation 02/21/17 16:00 03/23/17 15:59 Sodium Chloride 1,000 ml @ 125 mls/hr Q8H IV 02/22/17 14:45 03/24/17 14:44 02/23/17 07:00 Temazepam (Restoril) 15 mg HSPRN PRN ORAL Insomnia 02/21/17 16:00 02/28/17 15:59 SERGEY DESHPANDE Feb 23, 2017 12:41
[2017-02-23] MEDS ORDERED: Phenytoin 100mg cap ORAL SCH (21:00)
--- NOTE | 2017-02-24 11:00 | Cardiology Report ---
APPROVED REPORT EKG Measurement Heart [id number] ND [id number] Sinus bradycardia with marked sinus arrhythmia Otherwise normal ECG
--- NOTE | 2017-02-24 11:00 | Cardiology Report ---
APPROVED REPORT EKG Measurement Heart [id number] NM 140P55 [id number] Marked sinus bradycardia Abnormal ECG
--- NOTE | 2017-02-24 11:02 | Diagnostic Imaging Report ---
APPROVED REPORT CPT Code: 64641 Vascular Symptoms Syncope Doppler Spectral Velocity Analysis dICA66/ cm/sdICA52/ cm/s pICA45/ cm/spICA47/ cm/s ECA73/ cm/sECA64/ cm/s dCCA59/ cm/sdCCA73/ cm/s pCCA62/ cm/spCCA70/ cm/s Vert.38/ cm/sVert.50/ cm/s Right ICA/CCA ratio1.1Left ICA/CCA ratio0.7 CAROTID (BILATERAL) - Imaging reveals no significant plaque within the right and left extracranial carotid arteries. The Doppler spectral flow analysis is within normal limits throughout the extracranial carotid arteries bilaterally. VERTEBRAL- The vertebral arteries are within normal limits.
--- NOTE | 2017-02-24 11:02 | Cardiology Report ---
APPROVED REPORT EXAM: Two-dimensional and M-mode echocardiogram with Doppler and color Doppler. INDICATION Left ventricular function Limited view Echo study due to poor acoustical windows and patient's position. M-mode measurements of left ventricle not obtainable due to cardiac position (angle) Normal left ventricular chamber size, systolic function and wall motion to extent visualized. Left ventricular ejection fraction grossly estimated to be 55-60 %. No left ventricular hypertrophy. No evidence of pericardial effusion. All other cardiac chamber sizes are within normal limits. Focal aortic valve sclerosis with adequate cusp excursion. Thickened mitral valve leaflets with normal excursion. Mitral annulus and aortic root calcification. Normal tricuspid valve structure. IVC at normal size with physiologic collapse. A color flow and spectral Doppler study was performed and revealed: No aortic regurgitation. Trace mitral regurgitation. Mitral diastolic velocities indicate normal diastolic function Trace tricuspid regurgitation. Tricuspid systolic velocities suggests peak right ventricular systolic pressure of 15 mmHg.
--- NOTE | 2017-02-24 16:42 | Discharge Summary ---
Discharge Summary Hospital Course Date of Admission Feb 21, 2017 at 15:27 Date of Discharge Feb 23, 2017 at 15:45 Admitting Diagnosis syncope bradycardia HPI Armando Lawrence is a 56 year old male who was admitted on Feb 21, 2017 at 15:27 for Syncope Bradycardia Hospital Course [id number] Discharge Discharge Disposition Patient was discharged to prior living condition Discharge Diagnoses: Laurie Sharma NP Feb 24, 2017 16:42
--- NOTE | 2017-02-25 06:15 | Discharge Summary 2 SIG ---
DATE OF ADMISSION: 02/21/2017 DATE OF DISCHARGE: 02/23/2017 CONSULTANTS: 1. Conor Smallwood M.D. 2. Kevin Lawler M.D. BRIEF HOSPITAL COURSE: The patient is a 56-year-old male with history of seizures, presented to ED after a syncopal episode where he lost consciousness, event was unwitnessed. The patient was brought in by EMS. He complained of right upper extremity shaking and has been on Artane. On evaluation at ED, he had subtherapeutic Dilantin level. He was loaded with Dilantin. He was noted to have bradycardic episode. He had a head CT, which showed negative for intracranial bleed or mass effect with evidence of old right temporal encephalomalacia consistent with prior insult. He was admitted to telemetry for acute encephalopathy and seizure disorder and for evaluation of bradycardia. He underwent cardiac evaluation. EKG was in sinus carlee at the rate of 41. There was no ST or T-wave abnormalities of any significant degree. Telemetry data however showed sinus rhythm. His blood pressure has been on the low side. He was given IV bolus. He underwent neurological evaluation. He had seizure disorder exacerbation due to noncompliance. He was continued on Artane 2 mg twice a day and was placed on Dilantin 300 mg at bedtime. He was placed on seizure precautions. Social service was called in to assess for homelessness. Placement options were limited due to lack of income and stated that he would like to return to previous facility. He was discharged and was given bus tokens. Medications were filled by [facility] prior to discharge. He was also given permethrin cream for possible scabies infection. He had a carotid ultrasound, which showed no significant plaque within the right and left extracranial carotid arteries. Vertebral arteries were within normal limits. Echocardiogram showed ejection fraction 55% to 60% with normal left ventricular size, function, and motion. DISPOSITION: The patient was discharged back to prior living condition. DISCHARGE MEDICATIONS: Dilantin extended release 300 mg at bedtime. FOLLOWUP: Follow up with Medical [facility] where the patient goes to. Mirali Zarrabi, M.D. I have been assigned to dictate discharge summary on this account and I was not involved in the patient's management. Laurie Sharma N.P. DR: FAHEEM JOB#: [id number] CC:
[2017-03-05] MEDS ORDERED: DILANTIN30 MG ORAL (14:41)
== END 2017-02-23 15:45 | disposition home or self-care (01) | DRG 53 ==
LOC: EDBD 13:37 → EMR 14:30 → 2E 15:27 → EDBEDREQ 17:48 → 2E 23:02
DX: G40.909 Epilepsy, unspecified, not intractable, without status epilepticus (principal); G93.40 Encephalopathy, unspecified; I95.9 Hypotension, unspecified; G93.89 Other specified disorders of brain; R00.1 Bradycardia, unspecified; R21 Rash and other nonspecific skin eruption; F31.9 Bipolar disorder, unspecified; F17.210 Nicotine dependence, cigarettes, uncomplicated; Z86.19 Personal history of other infectious and parasitic diseases; Z59.0 Homelessness; R74.0 Nonspecific elevation of levels of transaminase and lactic acid dehydrogenase [LDH]; Z91.19 Patient's noncompliance with other medical treatment and regimen
CPT/HCPCS: 36415; 70450; 80053; 80061; 80185; 83735; 84100; 84443; 84484; 85025; 85610; 85730; 87081; 93005; 93306; 93880; 99285; J1165

== ENCOUNTER 2017-03-05 14:41 | Emergency (ER) | payer MEDICAID ==
[~2017-03-05] VITALS: Ht 182.9 cm; Wt 81.6 kg
[~2017-03-05 14:41] MED LIST: DILANTIN100 MG ORAL; DILANTIN30 MG ORAL
[2017-03-05] MEDS ORDERED: LORazepam Inj 2mg/ml 1ml IV ONE (15:00)
--- NOTE | 2017-03-05 15:02 | Emergency Room Report ---
History of Present Illness General Chief Complaint: General Complaint Source: Patient, EMS Present Illness HPI Patient is a 56-year-old male presented after increased left upper extremity shakiness. Patient prior history of seizure disorder. He had been previous a taking Artane for the shaking sensation. The patient had recently been admitted after having a multiple seizures. The patient prior history of seizure disorder. He reportedly takes Dilantin. The patient is from a [facility]. Patient denies any suicidal ideation Allergies: Coded Allergies: No Known Allergies (Unverified , 02/21/17) Patient History Past Medical History: seizures, psych hx Reviewed Nursing Documentation: PMH: Agreed, PSxH: Agreed Nursing Documentation-PMH Hx Cardiac Problems: No Hx Cancer: No Hx Gastrointestinal Problems: No History Of Psychiatric Problem: Yes Hx Neurological Problems: Yes Hx Seizures: Yes Hx Syncope: Yes Review of Systems All Other Systems: negative except mentioned in HPI Physical Exam Vital Signs Date Time Temp Pulse Resp B/P (MAP) Pulse Ox O2 Delivery O2 Flow Rate FiO2 03/05/17 14:37 89 18 133/90 98 Room Air Sp02 EP Interpretation: reviewed, normal General Appearance: normal inspection, well appearing, no apparent distress, alert, GCS 15 Head: atraumatic ENT: normal ENT inspection, hearing grossly normal, normal voice Neck: normal inspection, full range of motion, supple, no bony tend Respiratory: normal inspection, lungs clear, normal breath sounds, no respiratory distress, no retraction, no wheezing Cardiovascular #1: regular rate, rhythm, no edema Gastrointestinal: normal inspection, normal bowel sounds, non tender, soft, no guarding, no hernia Genitourinary: no CVA tenderness Musculoskeletal: normal inspection, back normal, normal range of motion Neurologic: normal inspection, responsive, motor weakness, other - tremor left upper extremity Psychiatric: normal inspection, judgement/insight normal, mood/affect normal Skin: normal inspection, normal color, no rash Medical Decision Making Diagnostic Impression: Primary Impression: Seizure disorder Additional Impressions: Noncompliance with medication regimen Tardive dyskinesia ER Course The patient presented for seizure disorder. Because of complexity of patient's case laboratory testing and imaging studies were ordered. The patient was noted to have subtherapeutic Dilantin level. Patient denies suicidal thoughts. Patient was given IV Dilantin. Patient noted have a baseline resting tremor of the somewhat improved after IV Ativan. The patient is advised to follow up with primary care doctor in 1-2 days. Patient is advised to return if any worsening condition or if any changes in status that are concerning. The patient was discharged to his previous living situation via ambulance This report is dictated with [employer] wound care nurse software which may occasionally lead to discrepancies related to use of this software. Last Vital Signs Date Time Temp Pulse Resp B/P (MAP) Pulse Ox O2 Delivery O2 Flow Rate FiO2 03/05/17 14:37 89 18 133/90 98 Room Air Status: improved Disposition: HOME, SELF-CARE Condition: Stable Scripts Phenytoin Sodium Extended* (DILANTIN*) 100 Mg Capsule 300 MG ORAL BEDTIME, #90 CAP Prov: Lex Hill 03/05/17 Lex Hill Mar 05, 2017 15:02
[2017-03-05 15:51] LABS: BASOPHILS % (AUTO) 1.7 % (0.0-2.0); EOSINOPHILS % (AUTO) 1.8 % (0.0-3.0); LYMPHOCYTES % (AUTO) 29.9 % (20.0-45.0); MEAN CORPUSCULAR HEMOGLOBIN 33.1 PG (27.0-31.0); MEAN CORPUSCULAR VOLUME 95 FL (80-99); MEAN PLATELET VOLUME 5.9 FL (6.5-10.1); NEUTROPHILS % (AUTO) 59.6 % (45.0-75.0); PLATELET COUNT 271 K/UL (150-450); RED BLOOD COUNT 4.65 M/UL (4.70-6.10); RED CELL DISTRIBUTION WIDTH 10.8 % (11.6-14.8); WHITE BLOOD COUNT 5.1 K/UL (4.8-10.8)
[2017-03-05 16:11] VITALS: BP 133/90
[2017-03-05 16:13] LABS: ALANINE AMINOTRANSFERASE 85 U/L (12-78); ALBUMIN/GLOBULIN RATIO 1.2 (1.0-2.7); ANION GAP 7 mmol/L (5-15); ASPARTATE AMINO TRANSFERASE 43 U/L (15-37); CARBON DIOXIDE 27 MMOL/L (21-32); CHLORIDE 105 MMOL/L (98-107); CREATININE 0.6 MG/DL (0.55-1.30); GLOMERULAR FILTRATION RATE > 60 mL/min (>60); POTASSIUM 3.8 MMOL/L (3.5-5.1); SODIUM 138 MMOL/L (136-145); TOTAL PROTEIN 6.9 G/DL (6.4-8.2)
[2017-03-05 16:55] LABS: ALCOHOL < 3 mg/dL; CALCIUM 7.7 MG/DL (8.5-10.1)
[2017-03-05] MEDS ORDERED: Phenytoin 1,000 MG in NS 275 ML IVPB ONE (17:00)
[2017-03-05] MEDS ORDERED: Phenytoin 250mg/5ml vial ONE (17:05)
[2017-03-05] MEDS ORDERED: DILANTIN100 MG ORAL (19:01)
[2017-03-05 20:09] VITALS: BP 109/64
[2017-03-05 20:52] LABS: APPEARANCE,URINE CLEAR; KETONES,URINE NEGATIVE (NEGATIVE); LEUKOCYTE ESTERASE ,URINE NEGATIVE (NEGATIVE); NITRITE,URINE NEGATIVE (NEGATIVE); PH,URINE 6.5 (4.5-8.0); PROTEIN,URINE NEGATIVE (NEGATIVE); UROBILINOGEN,URINE NORMAL MG/DL (0.0-1.0)
[2017-03-05 23:25] VITALS: BP 129/79
--- NOTE | 2017-03-06 14:54 | Cardiology Report ---
APPROVED REPORT EKG Measurement Heart [id number] 152P64 [id number] Normal sinus rhythm Normal ECG
== END 2017-03-05 23:25 | disposition home or self-care (01) ==
LOC: EDBD 14:41 → EMR 17:35
DX: G40.909 Epilepsy, unspecified, not intractable, without status epilepticus (principal); Z91.19 Patient's noncompliance with other medical treatment and regimen; G24.01 Drug induced subacute dyskinesia
CPT/HCPCS: 36415; 80053; 80185; 80329; 81003; 85025; 93005; 96365; 96375; 99284; J1165; J7050

== ENCOUNTER 2017-03-07 19:43 | Inpatient (IN) | payer MEDICAID ==
[~2017-03-07] VITALS: Ht 175.3 cm; Wt 68.0 kg
[2017-03-07 19:45] VITALS: BP 138/94
[2017-03-07] MEDS ORDERED: DiphenhydrAMINE 50mg/ml Inj IVP ONE (20:00)
--- NOTE | 2017-03-07 20:04 | Emergency Room Report ---
History of Present Illness General Chief Complaint: Dizziness Source: Patient Present Illness HPI The patient states a complaint of dizziness to EMS. He called paramedics from a phone roman. He's not staying at his home and was unable to give an address to them. He is unable to describe whether this is head spinning or weakness. He denies any Parkinson's disease or any prior neurologic disorder, but states has tardive dyskinesia from antipsychotic medications. He denies seizures although he was admitted recently for uncontrolled seizures and non-compliance. Also denies drugs or alcohol. He complains of some chest pain but is not able to describe the nature of this. States to RN 0/10 pain. He has any fevers , headache, nausea, vomiting, diarrhea. He denies psych meds (though states he has taken Artane). He states he has tardive dyskinesia. He denies SI or HI. He was recently admitted for seizures. His dilantin level has been negative in the past. Allergies: Coded Allergies: HALOPERIDOL (Verified Allergy, Unknown, 03/08/17) Patient History Past Medical History: see triage record Social History: Reports: smoking, Denies: alcohol use, drug use Social History Narrative from [facility] Reviewed Nursing Documentation: PMH: Agreed, PSxH: Agreed Nursing Documentation-PMH Past Medical History: No History, Except For Hx Cardiac Problems: No Hx Cancer: No Hx Gastrointestinal Problems: No Hx Neurological Problems: Yes Hx Seizures: Yes Hx Syncope: Yes Review of Systems All Other Systems: negative except mentioned in HPI - but patient not with good explanations Physical Exam Vital Signs Date Time Temp Pulse Resp B/P (MAP) Pulse Ox O2 Delivery O2 Flow Rate FiO2 03/07/17 19:45 101 16 143/97 97 Room Air Sp02 EP Interpretation: reviewed, normal General Appearance: well appearing, no apparent distress, GCS 15 Head: normocephalic Eyes: bilateral eye normal inspection, bilateral eye PERRL ENT: dry mucus membranes Neck: supple Respiratory: lungs clear, normal breath sounds Cardiovascular #1: regular rate, rhythm Cardiovascular #2: 2+ radial (R) Gastrointestinal: normal inspection, normal bowel sounds, non tender, no mass, non-distended, scaphoid Musculoskeletal: back normal, gait/station normal, normal range of motion Neurologic: alert, motor strength/tone normal, sensory intact, other - resting tremor, halting speech, unable to stand or walk, oriented - X2 - not know date/ day Psychiatric: other - flat affect Skin: normal inspection, warm/dry Medical Decision Making Diagnostic Impression: Primary Impression: Tardive dyskinesia Additional Impressions: Noncompliance with medication regimen Schizophrenia Qualified Codes: F20.9 - Schizophrenia, unspecified ER Course The patient presents with dizziness. He has a history of tardive dyskinesia and noncompliance with medication. He also has a history of seizures in the past. All these are possible on his differential at this time along with anxiety, encephalopathy and exacerbation of schizophrenia. He is to receive evaluation with EKG, CT of the head, chest x-ray and labs. He will receive IV hydration, Benadryl and Zofran. Patient initially improved with medications. Labs are significant for a low Dilantin level. The patient was given Dilantin orally here. We attempted to have the patient ambulate. He was unsteady on his feet and unable to ambulate. Patient is not stable to go back to the [facility] in his condition. Review of the social science professor notes is states that they suggested he be transferred to a [facility] facility after discharge from previous hospitalization. The patient was able ambulate that at that time and date decided to have a trial at a [facility]. The patient will be admitted to the hospital to to failure to ambulate. Admit Dr. Estes for Dr. Stewart. Laboratory Tests Test 03/07/17 20:20 03/07/17 22:55 White Blood Count 9.7 K/UL (4.8-10.8) Red Blood Count 4.79 M/UL (4.70-6.10) Hemoglobin 15.3 G/DL (14.2-18.0) Hematocrit 45.8 % (42.0-52.0) Mean Corpuscular Volume 96 FL (80-99) Mean Corpuscular Hemoglobin 32.0 PG (27.0-31.0) H Mean Corpuscular Hemoglobin Concent 33.4 G/DL (32.0-36.0) Red Cell Distribution Width 10.8 % (11.6-14.8) L Platelet Count 265 K/UL (150-450) Mean Platelet Volume 5.3 FL (6.5-10.1) L Neutrophils (%) (Auto) 73.9 % (45.0-75.0) Lymphocytes (%) (Auto) 15.7 % (20.0-45.0) L Monocytes (%) (Auto) 8.5 % (1.0-10.0) Eosinophils (%) (Auto) 0.7 % (0.0-3.0) Basophils (%) (Auto) 1.2 % (0.0-2.0) Sodium Level 140 MMOL/L (136-145) Potassium Level 3.5 MMOL/L (3.5-5.1) Chloride Level 103 MMOL/L (98-107) Carbon Dioxide Level 26 MMOL/L (21-32) Anion Gap 11 mmol/L (5-15) Blood Urea Nitrogen 12 mg/dL (7-18) Creatinine 0.6 MG/DL (0.55-1.30) Estimate Glomerular Filtration Rate > 60 mL/min (>60) Glucose Level 104 MG/DL (74-106) Lactic Acid Level 1.20 mmol/L (0.66-2.22) Calcium Level 7.8 MG/DL (8.5-10.1) L Total Bilirubin 0.4 MG/DL (0.2-1.0) Aspartate Amino Transferase (AST) 40 U/L (15-37) H Alanine Aminotransferase (ALT) 85 U/L (12-78) H Alkaline Phosphatase 122 U/L (46-116) H Ammonia 38 umol/L (11-32) H Total Creatine Kinase 80 U/L (26-308) Troponin I 0.000 ng/mL (0.000-0.056) Total Protein 7.5 G/DL (6.4-8.2) Albumin 3.9 G/DL (3.4-5.0) Globulin 3.6 g/dL Albumin/Globulin Ratio 1.1 (1.0-2.7) Thyroid Stimulating Hormone (TSH) 0.830 uiU/mL (0.358-3.740) Salicylates Level 2.3 ug/mL (2.8-20) L Acetaminophen Level < 2 MCG/ML (10-30) L Phenytoin (Dilantin) Level 5.1 ug/mL (10-20) L Serum Alcohol < 3 mg/dL Urine Color Yellow Urine Appearance Clear Urine pH 6 (4.5-8.0) Urine Specific [place] 1.020 (1.005-1.035) Urine Protein Negative (NEGATIVE) Urine Glucose (UA) Negative (NEGATIVE) Urine Ketones Negative (NEGATIVE) Urine Occult Blood Negative (NEGATIVE) Urine Nitrite Negative (NEGATIVE) Urine Bilirubin Negative (NEGATIVE) Urine Urobilinogen 1 MG/DL (0.0-1.0) H Urine Leukocyte Esterase 1+ (NEGATIVE) H Urine RBC Pending Urine WBC Pending Urine Squamous Epithelial Cells Pending Urine Bacteria Pending Urine Opiates Screen Negative (NEGATIVE) Urine Barbiturates Screen Negative (NEGATIVE) Phencyclidine (PCP) Screen Negative (NEGATIVE) Urine Amphetamines Screen Negative (NEGATIVE) Urine Benzodiazepines Screen Negative (NEGATIVE) Urine Cocaine Screen Negative (NEGATIVE) Urine Marijuana (THC) Screen Positive (NEGATIVE) H Chest X-Ray Diagnostic Results Chest X-Ray Diagnostic Results : Chest X-Ray Ordered: Yes # of Views/Limited/Complete: 1 View Indication: Other Interpretation: no effusion, no pneumothorax, other - scarring and emphysema Impression: Other Electronically Signed by: Electronically signed by Jose Kam MD CT/MRI/US Diagnostic Results CT/MRI/US Diagnostic Results : Imaging Test Ordered: head Impression no acute process Status: improved Disposition: ADMITTED INPATIENT Condition: Serious Jose Kam M.D. Mar 07, 2017 20:04
[2017-03-07 20:55] LABS: BASOPHILS % (AUTO) 1.2 % (0.0-2.0); EOSINOPHILS % (AUTO) 0.7 % (0.0-3.0); LYMPHOCYTES % (AUTO) 15.7 % (20.0-45.0); MEAN CORPUSCULAR HGB CONC 33.4 G/DL (32.0-36.0); MEAN CORPUSCULAR VOLUME 96 FL (80-99); MEAN PLATELET VOLUME 5.3 FL (6.5-10.1); MONOCYTES % (AUTO) 8.5 % (1.0-10.0); NEUTROPHILS % (AUTO) 73.9 % (45.0-75.0); PLATELET COUNT 265 K/UL (150-450); RED BLOOD COUNT 4.79 M/UL (4.70-6.10); RED CELL DISTRIBUTION WIDTH 10.8 % (11.6-14.8); WHITE BLOOD COUNT 9.7 K/UL (4.8-10.8)
[2017-03-07 21:14] LABS: ANION GAP 11 mmol/L (5-15); CALCIUM 7.8 MG/DL (8.5-10.1); CARBON DIOXIDE 26 MMOL/L (21-32); CHLORIDE 103 MMOL/L (98-107); CREATININE 0.6 MG/DL (0.55-1.30); GLOMERULAR FILTRATION RATE > 60 mL/min (>60); POTASSIUM 3.5 MMOL/L (3.5-5.1); SODIUM 140 MMOL/L (136-145)
[2017-03-07 21:17] LABS: AMMONIA 38 umol/L (11-32)
[2017-03-07 21:27] LABS: ALANINE AMINOTRANSFERASE 85 U/L (12-78); ALBUMIN/GLOBULIN RATIO 1.1 (1.0-2.7); ALCOHOL < 3 mg/dL; ASPARTATE AMINO TRANSFERASE 40 U/L (15-37); TOTAL PROTEIN 7.5 G/DL (6.4-8.2)
[2017-03-07 21:28] LABS: ACETAMINOPHEN < 2 MCG/ML (10-30)
[2017-03-07 22:05] VITALS: BP 128/79
[2017-03-07] MEDS ORDERED: Phenytoin 100mg cap ORAL ONE (23:15)
[2017-03-07 23:21] LABS: APPEARANCE,URINE CLEAR; KETONES,URINE NEGATIVE (NEGATIVE); LEUKOCYTE ESTERASE ,URINE 1+ (NEGATIVE); NITRITE,URINE NEGATIVE (NEGATIVE); PH,URINE 6 (4.5-8.0); PROTEIN,URINE NEGATIVE (NEGATIVE); UROBILINOGEN,URINE 1 MG/DL (0.0-1.0)
[2017-03-07 23:59] LABS: BACTERIA,URINE OCCASIONAL /HPF; CALCIUM OXALATE CRYSTALS,UR FEW /LPF; RBC,URINE 0-2 /HPF (0 - 0); SQUAMOUS EPITHELIAL CELL,UR OCCASIONAL /LPF (NONE/OCC)
[2017-03-08] VITALS (8 sets, daily range): BP systolic 100–121; BP diastolic 55–80
[2017-03-08] MEDS ORDERED: Phenytoin 100mg cap ORAL ONE (02:15)
[2017-03-08] MEDS ORDERED: DiphenhydrAMINE 50mg/ml Inj IVP ONE (02:45)
--- NOTE | 2017-03-08 09:23 | Diagnostic Imaging Report ---
Indication: Headache Technique: Contiguous 5 mm thick transaxial imaging of the head obtained in a Siemens Sensation [address] scanner. Soft tissue and bone windows generated. Automatic Exposure Control was utilized. Total Dose length Product (DLP): 1481.[address] Dose Index Volume (CTDIvol): 70.38 mGy Comparison: none Findings: There is encephalomalacia in right temporal lobe again noted unchanged. There is minimal prominence of the ventricles, basal cisterns, and cerebral sulci consistent with atrophy. Mild, nonspecific, white matter hypoattenuation is noted throughout the brain consistent with chronic small vessel disease. There is no midline shift, edema, acute hemorrhage, mass effect, or abnormal extra-axial fluid collections. Bones and extra osseous soft tissues are unremarkable. Impression: No acute intracranial bleed, mass effect or edema. Right temporal encephalomalacia unchanged. This is probably postischemic. The CT scanner at [facility] is accredited by the [employer] and the scans are performed using dose optimization techniques as appropriate to a performed exam including Automatic Exposure control.
[2017-03-08] MEDS ORDERED: Norco 5mg/325mg tab ORAL PRN (11:45)
--- NOTE | 2017-03-08 12:21 | Diagnostic Imaging Report ---
Indication: Dyspnea Comparison: None A single view chest radiograph was obtained. Findings: Mild reticular densities noted at the lung bases likely scar atelectasis. Lung volumes appear increased. Heart size is normal. Bones are osteopenic. IMPRESSION: Mild basal atelectasis versus scarring COPD
[2017-03-08 13:22] LABS: BASOPHILS % (AUTO) 1.2 % (0.0-2.0); EOSINOPHILS % (AUTO) 0.9 % (0.0-3.0); LYMPHOCYTES % (AUTO) 18.9 % (20.0-45.0); MEAN CORPUSCULAR HEMOGLOBIN 33.4 PG (27.0-31.0); MEAN CORPUSCULAR HGB CONC 35.1 G/DL (32.0-36.0); MEAN CORPUSCULAR VOLUME 95 FL (80-99); MEAN PLATELET VOLUME 5.6 FL (6.5-10.1); MONOCYTES % (AUTO) 9.7 % (1.0-10.0); NEUTROPHILS % (AUTO) 69.4 % (45.0-75.0); PLATELET COUNT 260 K/UL (150-450); RED BLOOD COUNT 4.45 M/UL (4.70-6.10); RED CELL DISTRIBUTION WIDTH 10.8 % (11.6-14.8); WHITE BLOOD COUNT 9.9 K/UL (4.8-10.8)
--- NOTE | 2017-03-08 13:37 | Neurology Progress Note ---
Objective Physical Exam Last Vital Signs Date Time Temp Pulse Resp B/P (MAP) Pulse Ox O2 Delivery O2 Flow Rate FiO2 03/08/17 11:57 98.7 76 20 121/80 98 03/08/17 07:53 Room Air Laboratory Tests Test 03/07/17 20:20 03/07/17 22:55 03/08/17 13:00 White Blood Count 9.7 K/UL (4.8-10.8) 9.9 K/UL (4.8-10.8) Red Blood Count 4.79 M/UL (4.70-6.10) 4.45 M/UL (4.70-6.10) L Hemoglobin 15.3 G/DL (14.2-18.0) 14.9 G/DL (14.2-18.0) Hematocrit 45.8 % (42.0-52.0) 42.3 % (42.0-52.0) Mean Corpuscular Volume 96 FL (80-99) 95 FL (80-99) Mean Corpuscular Hemoglobin 32.0 PG (27.0-31.0) H 33.4 PG (27.0-31.0) H Mean Corpuscular Hemoglobin Concent 33.4 G/DL (32.0-36.0) 35.1 G/DL (32.0-36.0) Red Cell Distribution Width 10.8 % (11.6-14.8) L 10.8 % (11.6-14.8) L Platelet Count 265 K/UL (150-450) 260 K/UL (150-450) Mean Platelet Volume 5.3 FL (6.5-10.1) L 5.6 FL (6.5-10.1) L Neutrophils (%) (Auto) 73.9 % (45.0-75.0) 69.4 % (45.0-75.0) Lymphocytes (%) (Auto) 15.7 % (20.0-45.0) L 18.9 % (20.0-45.0) L Monocytes (%) (Auto) 8.5 % (1.0-10.0) 9.7 % (1.0-10.0) Eosinophils (%) (Auto) 0.7 % (0.0-3.0) 0.9 % (0.0-3.0) Basophils (%) (Auto) 1.2 % (0.0-2.0) 1.2 % (0.0-2.0) Sodium Level 140 MMOL/L (136-145) Pending Potassium Level 3.5 MMOL/L (3.5-5.1) Pending Chloride Level 103 MMOL/L (98-107) Pending Carbon Dioxide Level 26 MMOL/L (21-32) Pending Anion Gap 11 mmol/L (5-15) Blood Urea Nitrogen 12 mg/dL (7-18) Pending Creatinine 0.6 MG/DL (0.55-1.30) Pending Estimat Glomerular Filtration Rate > 60 mL/min (>60) Pending Glucose Level 104 MG/DL (74-106) Pending Lactic Acid Level 1.20 mmol/L (0.66-2.22) Calcium Level 7.8 MG/DL (8.5-10.1) L Pending Total Bilirubin 0.4 MG/DL (0.2-1.0) Pending Aspartate Amino Transf (AST/SGOT) 40 U/L (15-37) H Pending Alanine Aminotransferase (ALT/SGPT) 85 U/L (12-78) H Pending Alkaline Phosphatase 122 U/L (46-116) H Pending Ammonia 38 umol/L (11-32) H Total Creatine Kinase 80 U/L (26-308) Troponin I 0.000 ng/mL (0.000-0.056) Total Protein 7.5 G/DL (6.4-8.2) Pending Albumin 3.9 G/DL (3.4-5.0) Pending Globulin 3.6 g/dL Pending Albumin/Globulin Ratio 1.1 (1.0-2.7) Thyroid Stimulating Hormone (TSH) 0.830 uiU/mL (0.358-3.740) Salicylates Level 2.3 ug/mL (2.8-20) L Acetaminophen Level < 2 MCG/ML (10-30) L Phenytoin (Dilantin) Level 5.1 ug/mL (10-20) L Serum Alcohol < 3 mg/dL Urine Color Yellow Urine Appearance Clear Urine pH 6 (4.5-8.0) Urine Specific [place] 1.020 (1.005-1.035) Urine Protein Negative (NEGATIVE) Urine Glucose (UA) Negative (NEGATIVE) Urine Ketones Negative (NEGATIVE) Urine Occult Blood Negative (NEGATIVE) Urine Nitrite Negative (NEGATIVE) Urine Bilirubin Negative (NEGATIVE) Urine Urobilinogen 1 MG/DL (0.0-1.0) H Urine Leukocyte Esterase 1+ (NEGATIVE) H Urine RBC 0-2 /HPF (0 - 0) H Urine WBC 2-4 /HPF (0 - 0) Urine Squamous Epithelial Cells Occasional /LPF Urine Calcium Oxalate Crystals Few /LPF (NONE) Urine Bacteria Occasional /HPF (NONE) Urine Opiates Screen Negative (NEGATIVE) Urine Barbiturates Screen Negative (NEGATIVE) Phencyclidine (PCP) Screen Negative (NEGATIVE) Urine Amphetamines Screen Negative (NEGATIVE) Urine Benzodiazepines Screen Negative (NEGATIVE) Urine Cocaine Screen Negative (NEGATIVE) Urine Marijuana (THC) Screen Positive (NEGATIVE) H Impression/Recommendations Problems: (1) parkinson syndrom, probably drug induced (2) Noncompliance with medication regimen (3) Seizure disorder (4) Unsteady gait Status: unchanged Recommendations #[id number] psych KAT Figueroa Mar 08, 2017 13:37
[2017-03-08 13:45] LABS: ALANINE AMINOTRANSFERASE 74 U/L (12-78); ALBUMIN/GLOBULIN RATIO 1.1 (1.0-2.7); ANION GAP 9 mmol/L (5-15); ASPARTATE AMINO TRANSFERASE 34 U/L (15-37); CALCIUM 7.8 MG/DL (8.5-10.1); CARBON DIOXIDE 27 MMOL/L (21-32); CHLORIDE 105 MMOL/L (98-107); CREATININE 0.6 MG/DL (0.55-1.30); GLOMERULAR FILTRATION RATE > 60 mL/min (>60); POTASSIUM 3.8 MMOL/L (3.5-5.1); SODIUM 141 MMOL/L (136-145)
[2017-03-08] MEDS: Sinemet 25/100 tab ORAL SCH ×2 (14:00→17:43)
[2017-03-08 15:18] LABS: PSA TOTAL 0.33 ng/mL (0.13-4.0)
[2017-03-08] MEDS: Trihexyphenidyl 2mg tab ORAL SCH (17:43)
[2017-03-08] MEDS: Phenytoin 100mg cap ORAL SCH (17:44)
[2017-03-08] MEDS: Heparin 5000 units/ml inj SUBQ SCH (20:49)
[2017-03-08] MEDS ORDERED: Phenytoin 100mg cap ORAL SCH (21:00)
--- NOTE | 2017-03-08 21:15 | Consultation ---
DATE OF CONSULTATION: 03/08/2017 NEUROLOGICAL CONSULTATION CONSULTING PHYSICIAN: Conor Smallwood M.D. ATTENDING/REQUESTING PHYSICIAN: Gibson Estes M.D. HISTORY OF PRESENT ILLNESS: This is a 56-year-old man seen in neurological consultation to evaluate the increasing tremors affecting his ambulation. The patient known to this facility two weeks ago when he was brought to this hospital after having a seizure episode, which felt to be as a result of noncompliance. He described the episode as sudden onset of visual sensation with blinking. He then lost consciousness. He claimed to have at least one seizure per month. At that time, he had a CT scan of the brain, which revealed encephalomalacia in the right temporal lobe. Repeated study on current admission showed no changes in findings. His carotid duplex was unremarkable. The patient at that time indicated that he developed tremors of his right arm and was using Artane for tremors. His examination revealed indeed resting tremor of right upper extremity, bradykinesia, and slow but stable gait. The patient was restarted on 1 g of Dilantin IV, continued Artane 2 mg b.i.d., and subsequently was discharged, now presenting with further exacerbation of symptomatology. Prior to admission, the patient was supposed to be on Dilantin 300 mg at bedtime. Following current admission, CBC studies were unremarkable. Chemistry panel with elevated AST 40, ALT 85, and alkaline phosphatase 122. Ammonia level of 38. Toxicology panel positive for marijuana. Phenytoin level 5.1. Chest x-ray on admission, mild basilar atelectasis versus scarring. Following current admission, the patient was given extra dose of phenytoin 700 mg followed by 300 mg at bedtime, Zofran, [place] p.r.n., subcutaneous heparin, and Benadryl p.r.n. PAST MEDICAL HISTORY: The patient known to have bipolar disorder, was treated with Prolixin, last dose was 2 or 3 weeks ago. He has history of chronic seizure disorder, presumably posttraumatic, history of head trauma, cerebral contusion causing temporal lobe encephalomalacia. ALLERGIES: Haldol. FAMILY HISTORY: Noncontributory. SOCIAL HISTORY: He is homeless, but currently he is in a senior care, suggestion now given that if not improving, he would be sent to a alf facility for rehabilitation. The patient is a smoker, but denies alcohol or drug abuse. REVIEW OF SYSTEMS: Feeling "misery" due to severe tremors in his upper extremities and difficulty ambulation. Denies chest pain or palpitations. No respiratory problem. The patient recalled having sometimes dizziness when getting upright. Mood depressed. No urine or bowel incontinence. PHYSICAL EXAMINATION: GENERAL: Well-developed, somewhat ill-appearing man, in mild distress due to continuous shaking of both upper extremities and torso. VITAL SIGNS: Remained stable. Blood pressure 120/80, respirations 18, and temperature 98.7 degrees. HEENT: Head normocephalic. There is no evidence of trauma. Eyes, ears, nose, and throat are clear. NECK: Rigid in all directions. MUSCULOSKELETAL: Unremarkable. There are no deformities. Peripheral pulses 1+, symmetric. MENTAL STATUS: He is alert and oriented x3. His speech is fluent, but slow. Mood depressed. CRANIAL NERVE II: Pupils both responding to light and accommodation. Extraocular movements intact. No nystagmus. CRANIAL NERVE V: Normal corneal responses. CRANIAL NERVE VII: No facial asymmetry. CRANIAL NERVE VIII: Grossly normal hearing. CRANIAL NERVES IX THROUGH XII: Within normal limits. There is reduced facial expression. MOTOR: There is a continuous resting tremor of both upper extremities, bradykinesia, generalized rigidity. Deep tendon reflexes 2+, bilaterally symmetric. Plantar responses flexor. SENSORY: Normal to pinprick, light touch. Gait slow, somewhat unstable while having continuous tremors including of torso and upper and lower extremities. IMPRESSION: 1. 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 2. Chronic seizure disorder. 3. Status post cerebral contusion, old. 4. Chronic psychiatric disorder. 5. Noncompliance. PLAN: 1. The patient's issue of seizures remained depending on his noncompliance. He again admitted with high subtherapeutic Dilantin. We will increase the dose to 200 mg b.i.d., recheck blood levels daily to adjust the dose appropriately. He presents with a progressive worsening of his parkinsonian symptoms, presumably following a recent use of Prolixin. 2. Idiopathic parkinsonian disease is possible, although quite unlikely due to very rapid progression in the last couple of weeks, which may be drug-induced, other etiologies will be also considered. 3. We will obtain MRI of the brain. We will restart on Artane 2 mg t.i.d., start on Sinemet 25/100 half a tablet t.i.d. to be titrated. 4. Avoid use of Prolixin or Haldol. 5. Have psychiatry assessment to adjust antipsychotic treatment appropriately, this may include antidepressants. 6. Get PT, OT, mobility protocol, use of walker as necessary. 7. Laboratory work will include thyroid function, HUSSEIN, sedimentation rate, heavy metal screen. 8. Due to weight loss and cigarette smoking, we will obtain CT of the chest to rule out malignancy. 9. protective services social worker will be requested to arrange transfer to alf facility upon discharge. Thank you. Conor Smallwood M.D. DR: SEAN JOB#: [id number] CC:
[2017-03-09 04:00] VITALS: BP 100/60
--- NOTE | 2017-03-09 08:30 | History and Physical Report ---
DATE OF ADMISSION: 03/08/2017 NOTE: "POOR AUDIO QUALITY" IDENTIFICATION DATA: The patient is a pleasant 56-year-old male, who presents from long term facility with dizziness. He has been seen by Neurology team by Dr. Smallwood. He had past medical history, which is significant for CVA, noncompliance, and chronic psychiatric disorder, who presents with tremors affecting his ambulation facility after having seizure episode, felt to be a result of noncompliance, described as sudden onset of visual sensation with blinking and had loss of consciousness. CAT scan of the brain completely revealed encephalomalacia, no changes noted. The patient at that time developed tremors of the right hand, continues to have tremors of right hand. Neurology service consulted. He is on Dilantin. PAST MEDICAL HISTORY: Bipolar disorder chronic seizure disorder, posttraumatic, and history of head trauma. ALLERGIES: Haldol. SOCIAL HISTORY: Homeless. Currently, in a correction. No alcohol, tobacco, or illicit drug use. FAMILY HISTORY: Noncontributory. REVIEW OF SYSTEMS: CONSTITUTIONAL: No fever, chills, or night sweats. However, he is feeling misery . SKIN: No rashes, bumps, or itching. HEENT: No headache, hearing, or vision changes. BREASTS: No lumps, pain, or discharge. PULMONARY: No cough, sputum, or shortness of breath. GASTROINTESTINAL: No nausea, vomiting, or diarrhea. GENITOURINARY: No dysuria, frequency, or urgency. MUSCULOSKELETAL: No joint swelling, muscle pain, or trauma. LABORATORY DATA: WBC 9.9, hemoglobin 10.9, and platelet count 260,000. BUN of 8 and creatinine 0.6. Urine toxicology positive for marijuana. 7.8. ASSESSMENT AND RECOMMENDATIONS: 1. Parkinson disease syndrome with tremors of right upper extremity, drug induced likely. 2. Chronic seizure disorder. Continue to closely monitor. 3. Chronic psychiatric disorder. Consider psychiatric evaluation . 4. Cerebrovascular accident history . 5. Noncompliance history. 6. likely related to Parkinson disease, which is worsened. I appreciate consult and care and reviewed case management notes. Continue to closely monitor. Gibson Elia Estes DR: Lakshmi JOB#: [id number] CC:
[2017-03-09] MEDS: Trihexyphenidyl 2mg tab ORAL SCH ×3 (09:08→17:36)
[2017-03-09] MEDS: Sinemet 25/100 tab ORAL SCH ×3 (09:08→17:36)
[2017-03-09] MEDS: Phenytoin 100mg cap ORAL SCH ×2 (09:09→17:36)
[2017-03-09] MEDS: Heparin 5000 units/ml inj SUBQ SCH ×2 (09:11→20:25)
[2017-03-09 09:21] VITALS: BP 103/62
[2017-03-09 12:00] VITALS: BP 91/62
[2017-03-09 15:51] VITALS: BP 95/67
--- NOTE | 2017-03-09 17:43 | General Progress Note ---
Assessment/Plan Assessment/Plan ASSESSMENT AND RECOMMENDATIONS: 1. Parkinson disease syndrome with tremors of right upper extremity. Neurology service following 2. Chronic seizure disorder. Continue to closely monitor. 3. COPD noted on chest xray. The patient is a cigarette smoker 4. Traumatic brain injury history 5. Noncompliance history. Refusing IV access and brain MRI 6. Altered mental status. Consider psychiatry evaluation Subjective Allergies: Coded Allergies: HALOPERIDOL (Verified Allergy, Unknown, 03/08/17) All Systems: reviewed and negative except above Subjective noncompliant Objective Last 24 Hour Vital Signs Date Time Temp Pulse Resp B/P (MAP) Pulse Ox O2 Delivery O2 Flow Rate FiO2 03/09/17 15:51 98.4 74 19 95/67 96 03/09/17 12:00 98.1 76 20 91/62 95 03/09/17 09:21 97.6 70 18 103/62 100 03/09/17 04:00 97.4 60 19 100/60 98 03/08/17 20:00 97.5 80 18 100/55 99 Intake and Output 03/08/17 03/09/17 19:00 07:00 Intake Total 360 ml Output Total 950 ml 500 ml Balance -590 ml -500 ml Intake Oral 360 ml Output Urine Total 950 ml 500 ml # Voids 3 2 Height (Feet): 5 Height (Inches): 9.00 Weight (Pounds): 150 General Appearance: confused EENT: normal ENT inspection Neck: normal alignment Abdomen: non tender Edema: 1+ Pedal (L), 1+ Pedal (R) Edema: trace edema Skin: normal pigmentation Gibson Estes Mar 09, 2017 17:43
[2017-03-09 20:20] VITALS: BP 112/62
[2017-03-10 00:22] VITALS: BP 110/60
[2017-03-10 04:00] VITALS: BP 105/64
[2017-03-10] MEDS: Phenytoin 100mg cap ORAL SCH (07:56)
[2017-03-10] MEDS: Sinemet 25/100 tab ORAL SCH ×2 (07:57→12:26)
[2017-03-10] MEDS: Trihexyphenidyl 2mg tab ORAL SCH ×2 (07:57→12:25)
[2017-03-10] MEDS: Heparin 5000 units/ml inj SUBQ SCH (08:00)
[2017-03-10 08:19] VITALS: BP 108/73
[2017-03-10 09:51] LABS: BASOPHILS % (AUTO) 1.6 % (0.0-2.0); EOSINOPHILS % (AUTO) 0.3 % (0.0-3.0); LYMPHOCYTES % (AUTO) 7.1 % (20.0-45.0); MEAN CORPUSCULAR HEMOGLOBIN 32.7 PG (27.0-31.0); MEAN CORPUSCULAR HGB CONC 34.7 G/DL (32.0-36.0); MEAN CORPUSCULAR VOLUME 94 FL (80-99); MEAN PLATELET VOLUME 5.7 FL (6.5-10.1); PLATELET COUNT 251 K/UL (150-450); RED BLOOD COUNT 4.73 M/UL (4.70-6.10); RED CELL DISTRIBUTION WIDTH 10.9 % (11.6-14.8); WHITE BLOOD COUNT 8.4 K/UL (4.8-10.8)
[2017-03-10 10:17] LABS: ALANINE AMINOTRANSFERASE 28 U/L (12-78); ALBUMIN/GLOBULIN RATIO 1.1 (1.0-2.7); ANION GAP 8 mmol/L (5-15); ASPARTATE AMINO TRANSFERASE 32 U/L (15-37); CALCIUM 7.8 MG/DL (8.5-10.1); CARBON DIOXIDE 27 MMOL/L (21-32); CHLORIDE 100 MMOL/L (98-107); CREATININE 0.8 MG/DL (0.55-1.30); GLOMERULAR FILTRATION RATE > 60 mL/min (>60); POTASSIUM 3.7 MMOL/L (3.5-5.1); SODIUM 134 MMOL/L (136-145); TOTAL PROTEIN 7.4 G/DL (6.4-8.2)
[2017-03-10 11:34] VITALS: BP 112/81
[2017-03-10] MEDS ORDERED: PHENYTOIN SODI200 MG PO (15:23)
[2017-03-10] MEDS ORDERED: ZOFRAN4 MG ORAL (15:25)
[2017-03-10] MEDS ORDERED: TRIHEXYPHENIDYL5 M2 PO (15:27)
[2017-03-10 15:46] VITALS: BP 107/71
--- NOTE | 2017-03-11 08:51 | Discharge Summary ---
Discharge Summary Hospital Course Date of Admission Mar 08, 2017 at 02:43 Date of Discharge Mar 10, 2017 at 16:11 Admitting Diagnosis UNSTEADY GAIT HPI Armando Lawrence is a 56 year old male who was admitted on Mar 08, 2017 at 02:43 for Unsteady [place] [facility] Course The patient is a pleasant 56-year-old male, who [facility] from [facility] with [facility]iness. He had past medical history, which is significant for CVA, noncompliance, and chronic psychiatric disorder. He presented from SNF for tremors affecting his ambulation; after having seizure episode, felt to be a result of noncompliance, described as sudden onset of visual sensation with blinking and had loss of consciousness. He described the episode as sudden onset of visual sensation with blinking. He then lost consciousness. CAT scan of the brain completely revealed encephalomalacia, no changes noted. The patient at that time developed tremors of the right hand, continues to have tremors of right hand. He claimed to have at least one seizure per month. At that time, he had a CT scan of the brain, which revealed encephalomalacia in the right temporal lobe. Repeated study on current admission showed no changes in findings. His carotid duplex was unremarkable. The patient at that time indicated that he developed tremors of his right arm and was using Artane for tremors. His examination revealed indeed resting tremor of right upper extremity, bradykinesia, and slow but stable gait. The patient was restarted on 1 g of Dilantin IV, continued Artane 2 mg b.i.d., and subsequently was discharged, now presenting with further exacerbation of symptomatology. Prior to admission, the patient was supposed to be on Dilantin 300 mg at bedtime. Following current admission, CBC studies were unremarkable. Chemistry panel with elevated AST 40, ALT 85, and alkaline phosphatase 122. Ammonia level of 38. Toxicology panel positive for marijuana. Phenytoin level 5.1. Chest x-ray on admission, mild basilar atelectasis versus scarring. Following current admission, the patient was given extra dose of phenytoin 700 mg followed by 300 mg at bedtime, Zofran, [place] p.r.n., subcutaneous heparin, and Benadryl p.r.n. The patient's issue of seizures remained depending on his noncompliance. He again admitted with high subtherapeutic Dilantin. Increase the dose to 200 mg b.i.d. He presents with a progressive worsening of his parkinsonian symptoms, presumably following a recent use of Prolixin. He was restarted on Artane 2 mg t.i.d., start on Sinemet 25/100 half a tablet t.i.d. to be titrated. Avoid use of Prolixin or Haldol. Refused IV access and brain MRI. He was [facility]. ASSESSMENT AND RECOMMENDATIONS: 1. Parkinson disease syndrome with tremors of right upper extremity. 3. COPD noted on chest xray. The patient is a cigarette smoker 4. Traumatic brain injury history 5. Noncompliance history. Refusing IV access and brain MRI 6. Altered mental status/ encephalopathy. 7. 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 -- I have been assigned to complete a Dc summary on this account, I was not involved with the patient's management.--Agustin Sharma NP Discharge Discharge Disposition Patient [facility] Discharge Diagnoses: Laurie Sharma NP Mar 11, 2017 08:51
[2017-03-11 10:28] LABS: VITAMIN B1 WHOLE BLOOD 175.7 nmol/L (66.5-200.0)
[2017-03-13 20:07] LABS: ALPHA TOCOPHEROL 5.5 mg/L (5.3-17.5)
--- NOTE | 2017-03-22 00:25 | Cardiology Report ---
APPROVED REPORT EKG Measurement Heart [id number] ME [id number] Normal sinus rhythm Normal ECG
== END 2017-03-10 16:11 | disposition home or self-care (01) | DRG 42 ==
LOC: EDBD 19:43 → EMR 20:00 → 3E 03-08 02:43 → EDBEDREQ 03-08 05:49
DX: G21.19 Other drug induced secondary parkinsonism (principal); G93.40 Encephalopathy, unspecified; F20.9 Schizophrenia, unspecified; G93.89 Other specified disorders of brain; G40.909 Epilepsy, unspecified, not intractable, without status epilepticus; R26.81 Unsteadiness on feet; Z59.0 Homelessness; Z72.0 Tobacco use; J44.9 Chronic obstructive pulmonary disease, unspecified; F31.30 Bipolar disorder, current episode depressed, mild or moderate severity, unspecified; Z87.820 Personal history of traumatic brain injury; Z91.14 Patient's other noncompliance with medication regimen; T50.995A Adverse effect of other drugs, medicaments and biological substances, initial encounter; Y92.9 Unspecified place or not applicable
CPT/HCPCS: 36415; 70450; 71010; 80053; 80185; 80307; 80329; 81003; 82140; 82550; 82607; 82962; 83605; 84153; 84207; 84425; 84443; 84446; 84484; 85025; 86039; 93005; 99285; J2405

== ENCOUNTER 2017-03-20 14:46 | Emergency (ER) | payer MEDICAID ==
[~2017-03-20] VITALS: Ht 172.7 cm; Wt 68.0 kg
[~2017-03-20 14:46] MED LIST changes: +PHENYTOIN SODI200 MG PO; +TRIHEXYPHENIDYL5 M2 PO; +ZOFRAN4 MG ORAL
[2017-03-20] MEDS ORDERED: Trihexyphenidyl 2mg tab ORAL ONE (15:15)
[2017-03-20] MEDS ORDERED: TRIHEXYPHENIDYL5 MG ORAL (17:21)
[2017-03-20 17:29] VITALS: BP 98/59
[2017-03-20 21:06] VITALS: BP 114/75
[2017-03-20 21:13] VITALS: BP 98/59
--- NOTE | 2017-03-22 12:45 | Emergency Room Report ---
History of Present Illness General Chief Complaint: General Complaint Source: Patient, EMS Present Illness HPI The patient is a 56-year-old male brought in by EMS from [facility] presenting for tremors. He has a stated history of Parkinson disease and ran out of his Artane yesterday. Tremors have now worsened. He is here to receive medication. He denies any other complaints including pain, nausea, vomiting, fever, chills, confusion, CP, SOB Allergies: Coded Allergies: HALOPERIDOL (Verified Allergy, Unknown, 03/08/17) Patient History Past Medical History: see triage record, seizures, psych hx Pertinent Family History: none Reviewed Nursing Documentation: PMH: Agreed, PSxH: Agreed Nursing Documentation-PMH Past Medical History: No History, Except For Hx Cardiac Problems: No Hx Cancer: No Hx Gastrointestinal Problems: No History Of Psychiatric Problem: Yes Hx Neurological Problems: Yes Hx Seizures: Yes Hx Syncope: Yes Review of Systems All Other Systems: negative except mentioned in HPI Physical Exam Vital Signs Date Time Temp Pulse Resp B/P (MAP) Pulse Ox O2 Delivery O2 Flow Rate FiO2 03/20/17 14:43 97.0 86 16 129/82 98 Room Air Sp02 EP Interpretation: reviewed, normal General Appearance: no apparent distress, alert, GCS 15, non-toxic Head: normocephalic, atraumatic Eyes: bilateral eye normal inspection, bilateral eye PERRL ENT: hearing grossly normal, normal pharynx, no angioedema, normal voice Neck: full range of motion, supple/symm/no masses Respiratory: chest non-tender, lungs clear, normal breath sounds, speaking full sentences Cardiovascular #1: regular rate, rhythm, no edema Musculoskeletal: back normal, gait/station normal, normal range of motion Neurologic: alert, oriented x3, responsive, motor strength/tone normal, sensory intact, other - resting tremor primarily of hands. Resolves with sleeping. Psychiatric: judgement/insight normal, memory normal, mood/affect normal, no suicidal/homicidal ideation Skin: normal color, no rash, warm/dry, well hydrated Medical Decision Making PA Attestation Dr. Ziegler is my supervising physician. Patient management was discussed with my supervising physician Diagnostic Impression: Primary Impression: Medication refill ER Course The patient is a 56-year-old male with a history of Parkinson disease presenting for tremors Differential diagnoses considered but not limited to: Parkinson disease, seizure , among others Physical exam: Afebrile. No apparent distress Patient is resting comfortably on the gurney resting tremor primarily of hands. Better with movement. Resolves with sleeping. The patient is given dose of Artane and will be discharged home with prescription He'll be returned [id number] ER precautions are given Last Vital Signs Date Time Temp Pulse Resp B/P (MAP) Pulse Ox O2 Delivery O2 Flow Rate FiO2 03/20/17 21:13 97.5 60 18 98/59 97 Room Air Status: improved Disposition: HOME, SELF-CARE Condition: Improved Scripts Trihexyphenidyl HCl (Trihexyphenidyl HCl) 5 Mg Tablet 2.5 MG ORAL TID, #30 TAB Prov: STEPHANIE WILLIS 03/20/17 Patient Instructions: Parkinson Disease Additional Instructions: I discussed my findings with the patient. All questions and concerns have been answered. Treatment and medication compliance have been addressed. Please follow up with her primary doctor at your [id number] STEPHANIE WILLIS Mar 22, 2017 12:45
== END 2017-03-20 21:10 | disposition home or self-care (01) ==
LOC: EDBD 14:46 → EMR 15:51
DX: Z76.0 Encounter for issue of repeat prescription (principal); G20 Parkinson's disease; Z88.8 Allergy status to other drugs, medicaments and biological substances; Z86.59 Personal history of other mental and behavioral disorders; Z86.69 Personal history of other diseases of the nervous system and sense organs
CPT/HCPCS: 99282